=== PATIENT | female | born 1945 | race African-American/Black ===

== ENCOUNTER 2016-07-28 19:39 | Emergency (ER) | payer MEDICARE, OTHER ==
[~2016-07-28] VITALS: Ht 170.2 cm; Wt 135.0 kg
[~2016-07-28 19:39] MED LIST: ALBU0.086 NEB; B12-1CHW CHEW; CLON.1 PO; DILT180C PO; FAMO1TAB36 PO; FISHCAP PO; FURO1TAB93 PO; HYDR-3535 PO; IRON18TA2 PO; MAGN30TA2; MULTCAP PO; PRED20 PO; RIVA20 PO; SUCR1S PO
[2016-07-28 19:42] VITALS: BP 185/84; PULSE 84; RESP 24; TEMP 98; O2SAT 98
--- NOTE | 2016-07-28 20:08 | PD ---
HPI Chief Complaint: Respiratory Symptoms Time Seen by Provider: 20:00 Travel History International Travel<30 days: No Contact w/Intl Traveler<30days: No Traveled to known affect area: No History of Present Illness HPI 70-year-old female who reports a history of CHF, atrial fibrillation, on xarelto. She presents for evaluation of dyspnea, cough. Symptom onset 5 days ago. The cough is productive with clear and yellow tinged sputum. The dyspnea is worse when she is lying down. She reports that she never lies down flat and sleeps reclined secondary to dyspnea. She takes 40 mg of Lasix on a daily basis , did not take it today because she was coming here. She denies any chest pain , nausea, vomiting, fevers, chills, new onset Swelling or pain, abdominal pain. She has been using albuterol nebulizers at home and this seems to help. She has no other complaints at this time. PFSH Past Medical History Hx Anticoagulant Therapy: Yes Arthritis: Yes Asthma: No Atrial Fibrillation: Yes Autoimmune Disease: No Blood Disorders: No Anxiety: Yes Depression: Yes Heart Rhythm Problems: Yes Cancer: No Cardiovascular Problems: Yes (CHF) High Cholesterol: Yes Chemotherapy: No Chest Pain: No Congestive Heart Failure: Yes COPD: No Cerebrovascular Accident: No Diabetes: No Diminished Hearing: No Endocrine: No Gastrointestinal Disorders: Yes GERD: Yes Glaucoma: No Genitourinary: No Headaches: No Hepatitis: No Hiatal Hernia: Yes Hypertension: Yes Immune Disorder: No Implanted Vascular Access Dvce: Yes Kidney Stones: No Musculoskeletal: Yes Neurologic: No Psychiatric: Yes Reproductive: No Respiratory: Yes (COPD) Myocardial Infarction: No Radiation Therapy: No Renal Failure: No Seizures: No Sickle Cell Disease: No Sleep Apnea: Yes Thyroid Disease: No Ulcer: No Past Surgical History Abdominal Surgery: Yes (appendectomy) AICD: No Appendectomy: Yes Arteriovenous Shunt: No Body Medical Devices: PIERCED EARS Cardiac Surgery: No Cholecystectomy: No Ear Surgery: No Endocrine Surgery: No Eye Surgery: Yes (PARITAL FACE LIFT) Genitourinary Surgery: No Gynecologic Surgery: Yes (breast reduction) Insulin Pump: No Joint Replacement: Yes (left knee replaced) Oral Surgery: No Pacemaker: No Thoracic Surgery: Yes (BREAST REDUCTION) Other Surgery: Yes (BREAST REDUCTION AND FACE LIFT) Social History Alcohol Use: No Tobacco Use: No Substance Use: No Allergies-Medications (Allergen,Severity, Reaction): Coded Allergies: Sulfa (Verified Allergy, Mild, skin peels, 07/28/16) Reported Meds & Prescriptions Reported Meds & Active Scripts Active Prednisone 20 Mg Tab 20 Mg PO BID 5 Days Azithromycin 250 Mg Tab 250 Mg PO DAILY Reported Furosemide 40 Mg Tab 40 Mg PO DAILY Furosemide 40 Mg Tab 40 Mg PO BID Cardizem (Diltiazem HCl) 120 Mg Tab 180 Mg PO DAILY Clonidine (Clonidine HCl) 0.1 Mg Tab 0.1 Mg PO BID Albuterol Neb (Albuterol Sulfate) 2.5 Mg/3 Ml Neb 2.5 Mg NEB Q4HR NEB PRN Xarelto (Rivaroxaban) 20 Mg Tab 20 Mg PO DAILY Review of Systems Except as stated in HPI: all other systems reviewed are Neg Physical Exam Narrative GENERAL: Well-developed well-nourished female in no acute distress SKIN: Warm and dry. HEAD: Atraumatic. Normocephalic. EYES: Pupils equal and round. No scleral icterus. No injection or drainage. ENT: No nasal bleeding or discharge. Mucous membranes pink and moist. NECK: Trachea midline. No JVD. No lymphadenopathy. CARDIOVASCULAR: Irregular rate and rhythm. No murmur appreciated. RESPIRATORY: No accessory muscle use. Auditory wheezing bilaterally. GASTROINTESTINAL: Abdomen soft, non-tender, nondistended. Hepatic and splenic margins not palpable. MUSCULOSKELETAL: No obvious deformities. 1+ tibial pitting edema bilaterally. NEUROLOGICAL: Awake and alert. No obvious cranial nerve deficits. Motor grossly within normal limits. Normal speech. Data Data Last Documented VS Vital Signs Date Time Temp Pulse Resp B/P Pulse Ox O2 Delivery O2 Flow Rate FiO2 07/28/16 20:24 80 22 150/70 98 Aerosol Mask 07/28/16 19:42 98.0 Orders Complete Blood Count With Diff (07/28/16 20:05) Basic Metabolic Panel (Bmp) (07/28/16 20:05) B-Type Natriuretic Peptide (07/28/16 20:05) Magnesium (Mg) (07/28/16 20:05) Ckmb (Isoenzyme) Profile (07/28/16 20:05) Troponin I (07/28/16 20:05) Iv Access Insert/Monitor (07/28/16 20:05) Electrocardiogram (07/28/16 20:05) Ecg Monitoring (07/28/16 20:05) Oximetry (07/28/16 20:05) Oxygen Administration (07/28/16 20:05) Chest, Single Ap (07/28/16 20:05) Sodium Chloride 0.9% Flush (Ns Flush) (07/28/16 20:15) Furosemide Inj (Lasix Inj) (07/28/16 20:15) Methylprednisolone So Succ Inj (Solumedr (07/28/16 20:15) Albuterol-Ipratropium Neb (Duoneb Neb) (07/28/16 20:15) CKMB (07/28/16 21:13) CKMB% (07/28/16 21:13) Labs Laboratory Tests Test 07/28/16 07/28/16 20:25 21:13 White Blood Count 7.5 TH/MM3 Red Blood Count 4.65 MIL/MM3 Hemoglobin 13.8 GM/DL Hematocrit 40.2 % Mean Corpuscular Volume 86.4 FL Mean Corpuscular Hemoglobin 29.6 PG Mean Corpuscular Hemoglobin 34.3 % Concent Red Cell Distribution Width 15.9 % Platelet Count 159 TH/MM3 Mean Platelet Volume 9.2 FL Neutrophils (%) (Auto) 51.8 % Lymphocytes (%) (Auto) 31.0 % Monocytes (%) (Auto) 7.3 % Eosinophils (%) (Auto) 9.4 % Basophils (%) (Auto) 0.5 % Neutrophils # (Auto) 3.9 TH/MM3 Lymphocytes # (Auto) 2.3 TH/MM3 Monocytes # (Auto) 0.5 TH/MM3 Eosinophils # (Auto) 0.7 TH/MM3 Basophils # (Auto) 0.0 TH/MM3 CBC Comment DIFF FINAL Differential Comment B-Type Natriuretic Peptide 76 PG/ML Sodium Level 143 MEQ/L Potassium Level 4.2 MEQ/L Chloride Level 108 MEQ/L Carbon Dioxide Level 26.9 MEQ/L Anion Gap 8 MEQ/L Blood Urea Nitrogen 15 MG/DL Creatinine 0.89 MG/DL Estimat Glomerular Filtration 76 ML/MIN Rate Random Glucose 89 MG/DL Calcium Level 9.4 MG/DL Magnesium Level 2.2 MG/DL Total Creatine Kinase 111 U/L Troponin I LESS THAN 0.02 NG/ML MDM Medical Decision Making Medical Screen Exam Complete: Yes Emergency Medical Condition: Yes Medical Record Reviewed: Yes Interpretation(s) EKG atrial fibrillation cxray FINDINGS: Trace edema seen at the bases. No large infiltrates seen. No large effusion. No pneumothorax. Mild cardiomegaly is stable. CBC unremarkable Differential Diagnosis CHF exacerbation, pneumonia, bronchitis, COPD, bronchiolitis, pleural effusion, acute coronary syndrome Narrative Course 70-year-old female with history of atrial fibrillation, on anticoagulation, CHF , presents with cough and dyspnea for 5 days. On initial examination she has wheezing bilaterally. She has trace lower extremity edema bilaterally which is chronic and not new according to the patient. She takes Lasix on a daily basis but did not take her dose today. IV Lasix ordered however the patient declined them. The patient will be given DuoNeb therapy, Solu-Medrol. Basic lab work, EKG, chest x-ray and ordered. The patient's lab work and imaging studies have been reviewed. The patient was reexamined after administration of DuoNeb therapy and she feels significant improved. The patient's symptoms appear primarily pulmonary, likely bronchitis versus COPD. Plan is to treat the patient with azithromycin, prednisone. She is stable for discharge. Procedures EKG Prior to Arrival: Yes Diagnosis Primary Impression: Bronchitis Additional Instructions: Medication as prescribed. Use at-home albuterol as needed. Follow-up with primary care physician. Return for new or worsening symptoms. Med/Other Pt SpecificInfo: Prescription(s) given Scripts Prednisone 20 Mg Tab20 Mg PO BID 5 Days Ref 0 Prov:Christy Dailey MD 07/28/16 Azithromycin 250 Mg [id number] Mg PO DAILY #4 TAB Ref 0 Prov:Christy Dailey MD 07/28/16 Disposition: 01 DISCHARGE HOME Condition: Stable Cristino Foss Jul 28, 2016 20:08
[2016-07-28] MEDS: RESP: ALBUTEROL 2.5 MG/IPRATROPIUM 0.5 MG NEB (SCH) INH (20:12)
[2016-07-28] MEDS ORDERED: SODIUM CHLORIDE 0.9% FLUSH 5 ML FLUSH IVF PRN (20:15)
[2016-07-28] MEDS ORDERED: FUROSEMIDE 40 MG/4 ML VIAL IVP ONE (20:15)
[2016-07-28] MEDS ORDERED: methylPREDNISolone SOD SUCC 125 MG/2 ML VIAL IVP ONE (20:15)
[2016-07-28 20:24] VITALS: BP 150/70; PULSE 80; RESP 22; O2SAT 98
[2016-07-28] MEDS ORDERED: ALBU0.08 NEB (20:42)
[2016-07-28] MEDS ORDERED: FURO40TA PO ×2 (20:42)
[2016-07-28] MEDS ORDERED: CLON0.1T PO (20:42)
[2016-07-28] MEDS ORDERED: CARD120T4 PO (20:42)
[2016-07-28] MEDS ORDERED: XARE20TA PO (20:42)
--- NOTE | 2016-07-28 20:42 | PD ---
Physical Exam Narrative General: The patient is a well-developed well-nourished female, slightly short of breath on my arrival to the room, however she reports that she feels improved after nebulizer treatments were started prior to my arrival. Head and Neck exam: Head is normocephalic atraumatic. Eyes: EOMI, pupils are equal round and reactive to light. Nose: Midline septum with pink mucous membranes Mouth: Dentition unremarkable. Moist mucus membranes. Posterior oropharynx is not erythematous. No tonsillar hypertrophy. Uvula midline. Airway patent. Neck: No palpable lymphadenopathy. No nuchal rigidity. No thyromegaly. Cardiovascular: Irregularly irregular with a rate in the 80s to 90s without murmurs, gallops, or rubs. Lungs: Expiratory wheezes are audible throughout bilateral lung kumar. No accessory muscle use currently. No tripoding. No conversational dyspnea. The patient is currently in the process of receiving a nebulizer treatment. Abdomen: Soft, without tenderness to palpation in all 4 quadrants of the abdomen. No guarding, rebound, or rigidity. Normal bowel sounds are audible. Extremities: No clubbing or cyanosis. The patient has 1+ pitting edema bilateral lower extremities which she reports is chronic and stable. No calf tenderness on palpation. Neurologic Exam: Grossly nonfocal. Skin Exam: No rash noted. Intact skin that is warm and dry. Data Data Last Documented VS Vital Signs Date Time Temp Pulse Resp B/P Pulse Ox O2 Delivery O2 Flow Rate FiO2 07/28/16 20:24 80 22 150/70 98 Aerosol Mask 07/28/16 19:42 98.0 Orders Complete Blood Count With Diff (07/28/16 20:05) Basic Metabolic Panel (Bmp) (07/28/16 20:05) B-Type Natriuretic Peptide (07/28/16 20:05) Magnesium (Mg) (07/28/16 20:05) Ckmb (Isoenzyme) Profile (07/28/16 20:05) Troponin I (07/28/16 20:05) Iv Access Insert/Monitor (07/28/16 20:05) Electrocardiogram (07/28/16 20:05) Ecg Monitoring (07/28/16 20:05) Oximetry (07/28/16 20:05) Oxygen Administration (07/28/16 20:05) Chest, Single Ap (07/28/16 20:05) Sodium Chloride 0.9% Flush (Ns Flush) (07/28/16 20:15) Furosemide Inj (Lasix Inj) (07/28/16 20:15) Methylprednisolone So Succ Inj (Solumedr (07/28/16 20:15) Albuterol-Ipratropium Neb (Duoneb Neb) (07/28/16 20:15) CKMB (07/28/16 21:13) CKMB% (07/28/16 21:13) Azithromycin (Zithromax) (07/28/16 22:30) Labs Laboratory Tests Test 07/28/16 07/28/16 20:25 21:13 White Blood Count 7.5 TH/MM3 Red Blood Count 4.65 MIL/MM3 Hemoglobin 13.8 GM/DL Hematocrit 40.2 % Mean Corpuscular Volume 86.4 FL Mean Corpuscular Hemoglobin 29.6 PG Mean Corpuscular Hemoglobin 34.3 % Concent Red Cell Distribution Width 15.9 % Platelet Count 159 TH/MM3 Mean Platelet Volume 9.2 FL Neutrophils (%) (Auto) 51.8 % Lymphocytes (%) (Auto) 31.0 % Monocytes (%) (Auto) 7.3 % Eosinophils (%) (Auto) 9.4 % Basophils (%) (Auto) 0.5 % Neutrophils # (Auto) 3.9 TH/MM3 Lymphocytes # (Auto) 2.3 TH/MM3 Monocytes # (Auto) 0.5 TH/MM3 Eosinophils # (Auto) 0.7 TH/MM3 Basophils # (Auto) 0.0 TH/MM3 CBC Comment DIFF FINAL Differential Comment B-Type Natriuretic Peptide 76 PG/ML Sodium Level 143 MEQ/L Potassium Level 4.2 MEQ/L Chloride Level 108 MEQ/L Carbon Dioxide Level 26.9 MEQ/L Anion Gap 8 MEQ/L Blood Urea Nitrogen 15 MG/DL Creatinine 0.89 MG/DL Estimat Glomerular Filtration 76 ML/MIN Rate Random Glucose 89 MG/DL Calcium Level 9.4 MG/DL Magnesium Level 2.2 MG/DL Total Creatine Kinase 111 U/L Creatine Kinase MB 0.7 NG/ML Troponin I LESS THAN 0.02 NG/ML [facility] Medical Record Reviewed: Yes Supervised Visit with KASSANDRA: Yes Interpretation(s) Last Impressions Chest X-Ray 07/28/162004 Signed Impressions: Service Date/Time: Thursday, July 28, 2016 20:34 - CONCLUSION: Trace failure. Rodney eHndrickson MD Narrative Course I, Dr. Dailey, have reviewed the advance practice practitioner's documentation and am in agreement, met with the patient face to face, made the diagnosis, and the medical decision making was done by me. The patient was initially evaluated by Cristino, please see his complete history and physical. *My assessment and Findings: The patient is a 70-year-old female who presents to [facility] emergency Department with a history of congestion, cough productive of yellow sputum and shortness of breath with wheezing that began a few days ago. The patient reports that she has been using an albuterol nebulizer treatment at home with minimal relief. The patient reports that she has a history of smoking, however she quit smoking 25 years ago. The patient reports that she has a history of congestive heart failure, however she denies any worsening lower extremity edema. She has been taking her Lasix on a daily basis. The patient's examination is remarkable for an irregularly irregular rhythm, however the patient does have a history of atrial fibrillation and her rate is controlled. She is on anticoagulation. The patient also on examination has expiratory wheezes throughout bilateral lung kumar. Laboratory studies and chest x-ray have been ordered. Her EKG reveals atrial fibrillation heart rate of 80, nonspecific T-wave abnormalities, no acute ST segment elevation. Laboratory studies revealed a CBC within normal limits, basic metabolic profile unremarkable, cardiac enzymes are negative, BNP is 76, chest x-ray shows trace failure, however this is unlikely given the patient's normal BNP. The patient will be discharged home with a prescription for antibiotic and prednisone for a suspected COPD exacerbation. The patient is resting comfortably and feels better, is alert and in no distress. The patients results and examination findings were discussed with the patient The repeat examination is unremarkable and benign. The history, exam , diagnostic testing, and current condition do not suggest any significant pathology to warrant further testing, continued ED treatment, admission, or surgical evaluation at this point. The vital signs have been stable. The patient does not have uncontrollable pain, intractable vomiting, or other significant symptoms. The patient's condition is stable and appropriate for discharge. The patient will pursue further outpatient evaluation with a primary care physician or other designated or consulting physician as indicated in the discharge instructions. The patient expressed understanding and was agreeable with this plan. Scripts Prednisone 20 Mg Tab20 Mg PO BID 5 Days Ref 0 Prov:Christy Dailey MD 07/28/16 Azithromycin 250 Mg [id number] Mg PO DAILY #4 TAB Ref 0 Prov:Christy Dailey MD 07/28/16 Christy Dailey MD Jul 28, 2016 20:42
[2016-07-28 20:49] LABS: AUTOMATED NEUTROPHIL # 3.9 TH/MM3 (1.8-7.7); BASOPHIL % 0.5 % (0.0-2.0); EOSINOPHIL # 0.7 TH/MM3 (0-0.4); EOSINOPHIL % 9.4 % (0.0-4.0); HEMATOCRIT 40.2 % (35.0-46.0); HEMO FLAGS DIFF FINAL; LYMPHOCYTE # 2.3 TH/MM3 (1.0-4.8); MEAN CELL VOLUME 86.4 FL (80.0-100.0); MEAN CORPUSCULAR HEMOGLOBIN 29.6 PG (27.0-34.0); MEAN CORPUSCULAR HGB CONC 34.3 % (32.0-36.0); MONO % 7.3 % (0.0-8.0); NEUT % 51.8 % (16.0-70.0); PLATELET COUNT 159 TH/MM3 (150-450); RED BLOOD COUNT 4.65 MIL/MM3 (4.00-5.30); RED CELL DISTRIBUTION WIDTH 15.9 % (11.6-17.2); WHITE BLOOD COUNT 7.5 TH/MM3 (4.0-11.0)
--- NOTE | 2016-07-28 21:01 | RADRPT ---
EXAM DATE/TIME: 07/28/2016 20:34 [facility] COMPARISON: CHEST SINGLE AP, May 21, 2016, 18:54. INDICATIONS : Shortness of breath MEDICAL HISTORY : Congestive heart failure. SURGICAL HISTORY : Appendectomy. R Rotator Cuff, Breat Augmentation, Bilat Knees ENCOUNTER: Initial ACUITY: 1 day PAIN SCORE: 4/10 LOCATION: Bilateral chest FINDINGS: Trace edema seen at the bases. No large infiltrates seen. No large effusion. No pneumothorax. Mild ca rdiomegaly is stable. CONCLUSION: Trace failure. Rodney Hendrickson MD on July 28, 2016 at 20:59 Board Certified Radiologist. This report was verified electronically.
[2016-07-28 22:23] LABS: ANION GAP 8 MEQ/L (5-15); BICARBONATE 26.9 MEQ/L (21.0-32.0); BLOOD UREA NITROGEN 15 MG/DL (7-18); CHLORIDE 108 MEQ/L (98-107); GLOMERULAR FILTRATION RATE 76 ML/MIN (>89); MAGNESIUM 2.2 MG/DL (1.5-2.5); POTASSIUM 4.2 MEQ/L (3.5-5.1); SODIUM (NA) 143 MEQ/L (136-145)
[2016-07-28 22:26] LABS: CREATINE KINASE 111 U/L (26-192)
[2016-07-28] MEDS ORDERED: PRED20 PO (22:30)
[2016-07-28] MEDS ORDERED: AZITHROMYCIN 250 MG TAB PO ONE (22:30)
[2016-07-28] MEDS ORDERED: AZIT250T3 PO (22:30)
[2016-07-28 22:38] LABS: CKMB 0.7 NG/ML (0.5-3.6)
--- NOTE | 2016-07-29 17:53 | EKG ---
Date Performed: 07/28/2016 Time Performed: 20:35:25 PTAGE: 70 years EKG: ATRIAL FIBRILLATION NONSPECIFIC T-WAVE ABNORMALITY Since previous tracing, no significant c hange noted ABNORMAL RHYTHM ECG PREVIOUS TRACING : 05/21/2016 18.48 DOCTOR: Cindi Carter Interpretating Date/Time 07/29/2016 17:51:16
== END 2016-07-28 22:49 | disposition home or self-care (01) ==
LOC: NEPE 19:39
DX: J44.1 Chronic obstructive pulmonary disease with (acute) exacerbation (principal); I50.9 Heart failure, unspecified; I48.91 Unspecified atrial fibrillation; Z79.01 Long term (current) use of anticoagulants
CPT/HCPCS: 71010; 80048; 82550; 82552; 83735; 83880; 84484; 85025; 93005; 94640; 94664; 96374; 99285; J2930

== ENCOUNTER 2016-08-28 18:59 | Inpatient (IN) | payer MEDICARE, OTHER ==
[~2016-08-28] VITALS: Ht 170.2 cm; Wt 92.3 kg
[~2016-08-28 18:59] MED LIST changes: +ALBU0.08 NEB; -ALBU0.086 NEB; +AZIT250T3 PO; -B12-1CHW CHEW; +CARD120T4 PO; -CLON.1 PO; +CLON0.1T PO; -DILT180C PO; -FAMO1TAB36 PO; -FISHCAP PO; -FURO1TAB93 PO; +FURO40TA PO; -HYDR-3535 PO; -IRON18TA2 PO; -MAGN30TA2; -MULTCAP PO; -RIVA20 PO; -SUCR1S PO; +XARE20TA PO
[2016-08-28 19:02] VITALS: BP 145/75; PULSE 83; RESP 18; TEMP 98.2; O2SAT 97
--- NOTE | 2016-08-28 19:39 | PD ---
HPI Chief Complaint: Respiratory Symptoms Time Seen by Provider: 19:33 Travel History International Travel<30 days: No Contact w/Intl Traveler<30days: No Traveled to known affect area: No History of Present Illness HPI 70-year-old female came to the emergency room with history of shortness of breath upon exertion, cough with yellowish colored phlegm that has been going on for almost 6 weeks now. Patient says that she has had 3 courses of antibiotics mostly Z-Arsenio with not much effect. Patient says that she has been in this emergency room twice in these 6 weeks but her symptoms continue. No history of chest pain. Lately patient has been short of breath even getting in and out of her wheelchair. Patient has history of congestive heart failure and takes 40 mg of Lasix daily without stopping any dose. She has noticed that her legs bilaterally are swollen. Patient is morbidly obese and normally uses a wheelchair for ambulation. However, getting in and out of the wheelchair makes her extremely short of breath lately. She was brought in by her family today. Her vital signs in the triage were stable. However when I asked her to lay down in the stretcher she got extremely short of breath chest on doing that minimal task. Her heart rate went up to 110. She was unable to finish a sentence within of breath. Patient says she was diagnosed with asthma many years ago and had it for 3 years only. She has not had issues regarding asthma since then. [facility] Past Medical History Narrative Medical List of her past medical history as reviewed from the nursing note. Hx Anticoagulant Therapy: Yes Arthritis: Yes Asthma: No Atrial Fibrillation: Yes Autoimmune Disease: No Blood Disorders: No Anxiety: Yes Depression: Yes Heart Rhythm Problems: Yes Cancer: No Cardiovascular Problems: Yes High Cholesterol: Yes Chemotherapy: No Chest Pain: No Congestive Heart Failure: Yes COPD: No Cerebrovascular Accident: No Diabetes: No Diminished Hearing: No Endocrine: No Gastrointestinal Disorders: Yes GERD: Yes Glaucoma: No Genitourinary: No Headaches: No Hepatitis: No Hiatal Hernia: Yes Hypertension: Yes Immune Disorder: No Implanted Vascular Access Dvce: Yes Kidney Stones: No Musculoskeletal: Yes Neurologic: No Psychiatric: Yes Reproductive: No Respiratory: Yes (COPD) Immunizations Current: Yes Myocardial Infarction: No Radiation Therapy: No Renal Failure: No Seizures: No Sickle Cell Disease: No Sleep Apnea: Yes Thyroid Disease: No Ulcer: No Past Surgical History Abdominal Surgery: Yes (appendectomy) AICD: No Appendectomy: Yes Arteriovenous Shunt: No Body Medical Devices: PIERCED EARS Cardiac Surgery: No Cholecystectomy: No Ear Surgery: No Endocrine Surgery: No Eye Surgery: Yes (PARITAL FACE LIFT) Genitourinary Surgery: No Gynecologic Surgery: Yes (breast reduction) Insulin Pump: No Joint Replacement: Yes (left knee replaced) Oral Surgery: No Pacemaker: No Thoracic Surgery: Yes (BREAST REDUCTION) Other Surgery: Yes (BREAST REDUCTION AND FACE LIFT) Social History Alcohol Use: No Tobacco Use: No Substance Use: No Allergies-Medications (Allergen,Severity, Reaction): Coded Allergies: Sulfa (Verified Allergy, Mild, skin peels, 08/28/16) Comments List of her allergies reviewed from the nursing note. Reported Meds & Prescriptions Reported Meds & Active Scripts Active Reported Furosemide 40 Mg Tab 40 Mg PO BID Cardizem (Diltiazem HCl) 120 Mg Tab 180 Mg PO DAILY Clonidine (Clonidine HCl) 0.1 Mg Tab 0.1 Mg PO BID Albuterol Neb (Albuterol Sulfate) 2.5 Mg/3 Ml Neb 2.5 Mg NEB Q4HR NEB PRN Xarelto (Rivaroxaban) 20 Mg Tab 20 Mg PO DAILY Narrative Medication List of her home medications reviewed from the nursing note. Review of Systems Except as stated in HPI: all other systems reviewed are Neg Physical Exam Narrative GENERAL: Awake, alert, morbidly obese, moderate respiratory distress SKIN: Warm and dry. HEAD: Atraumatic. Normocephalic. EYES: Pupils equal and round. No scleral icterus. No injection or drainage. ENT: No nasal bleeding or discharge. Mucous membranes pink and moist. NECK: Trachea midline. No JVD. CARDIOVASCULAR: Regular rate and rhythm. No murmur appreciated. RESPIRATORY: Decreased air entry bilaterally with end expiratory wheeze GASTROINTESTINAL: Abdomen soft, non-tender, nondistended. Hepatic and splenic margins not palpable. MUSCULOSKELETAL: No obvious deformities. No clubbing. No cyanosis. No edema. NEUROLOGICAL: Awake and alert. No obvious cranial nerve deficits. Motor grossly within normal limits. Normal speech. PSYCHIATRIC: Appropriate mood and affect; insight and judgment normal. Data Data Last Documented VS Vital Signs Date Time Temp Pulse Resp B/P Pulse Ox O2 Delivery O2 Flow Rate FiO2 08/28/16 20:56 85 18 148/75 96 Room Air 08/28/16 19:02 98.2 Orders Complete Blood Count With Diff (08/28/16 19:44) Basic Metabolic Panel (Bmp) (08/28/16 19:44) B-Type Natriuretic Peptide (08/28/16 19:44) Prothrombin Time / Inr (Pt) (08/28/16 19:44) Magnesium (Mg) (08/28/16 19:44) Ckmb (Isoenzyme) Profile (08/28/16 19:44) Troponin I (08/28/16 19:44) Urinalysis - C+S If Indicated (08/28/16 19:44) Iv Access Insert/Monitor (08/28/16 19:44) Electrocardiogram (08/28/16 19:44) Ecg Monitoring (08/28/16 19:44) Oximetry (08/28/16 19:44) Oxygen Administration (08/28/16 19:44) Chest, Single Ap (08/28/16 19:44) Sodium Chloride 0.9% Flush (Ns Flush) (08/28/16 19:45) Albuterol-Ipratropium Neb (Duoneb Neb) (08/28/16 19:45) Furosemide Inj (Lasix Inj) (08/28/16 19:45) Diltiazem Inj (Cardizem Inj) (08/28/16 20:45) Urinary Catheter Insert/Apply (08/28/16 20:37) Diltiazem (Cardizem) (08/28/16 20:45) Clonidine (Catapres) (08/28/16 20:45) CKMB (08/28/16 20:08) CKMB% (08/28/16 20:08) Methylprednisolone So Succ Inj (Solumedr (08/28/16 22:00) Place In Observation (08/28/16 ) Vital Signs (Adult) Q4H (08/28/16 21:57) Activity Oob With Assistance (08/28/16 21:57) Seed Collector / Telemetry .CONTINUOUS (08/28/16 21:57) Intake + Output MASOOD.QSHIFT (08/28/16 21:57) Diet Heart Healthy (08/29/16 Breakfast) Sodium Chloride 0.9% Flush (Ns Flush) (08/28/16 22:00) Sodium Chloride 0.9% Flush (Ns Flush) (08/29/16 09:00) Basic Metabolic Panel (Bmp) (08/29/16 06:00) Complete Blood Count With Diff (08/29/16 06:00) Creatine Kinase (Cpk) (08/29/16 02:00) Creatine Kinase (Cpk) (08/29/16 08:00) Troponin I (08/29/16 02:00) Troponin I (08/29/16 08:00) Electrocardiogram (08/29/16 02:00) Electrocardiogram (08/29/16 08:00) Pt Request For Service (08/28/16 21:57) Case Management Consult (08/28/16 21:57) Enoxaparin Inj (Lovenox Inj) (08/29/16 09:00) Naloxone Inj (Narcan Inj) (08/28/16 22:00) Admit Order (Ed Use Only) (08/28/16 21:57) Clonidine (Catapres) (08/29/16 09:00) Rivaroxaban (Xarelto) (08/29/16 09:00) Diltiazem Cd (Cardizem Cd) (08/29/16 09:00) Furosemide Inj (Lasix Inj) (08/29/16 09:00) Albuterol-Ipratropium Neb (Duoneb Neb) (08/29/16 08:00) Albuterol-Ipratropium Neb (Duoneb Neb) (08/28/16 22:00) Thyroid Stimulating Hormone (08/29/16 03:56) Labs Laboratory Tests Test 08/28/16 08/28/16 20:08 20:45 White Blood Count 6.8 TH/MM3 Red Blood Count 4.69 MIL/MM3 Hemoglobin 13.5 GM/DL Hematocrit 41.0 % Mean Corpuscular Volume 87.3 FL Mean Corpuscular Hemoglobin 28.8 PG Mean Corpuscular Hemoglobin 33.0 % Concent Red Cell Distribution Width 15.3 % Platelet Count 176 TH/MM3 Mean Platelet Volume 9.0 FL Neutrophils (%) (Auto) 55.6 % Lymphocytes (%) (Auto) 29.8 % Monocytes (%) (Auto) 8.0 % Eosinophils (%) (Auto) 5.8 % Basophils (%) (Auto) 0.8 % Neutrophils # (Auto) 3.8 TH/MM3 Lymphocytes # (Auto) 2.0 TH/MM3 Monocytes # (Auto) 0.5 TH/MM3 Eosinophils # (Auto) 0.4 TH/MM3 Basophils # (Auto) 0.1 TH/MM3 CBC Comment DIFF FINAL Differential Comment Prothrombin Time 14.0 SEC Prothromb Time International 1.3 RATIO Ratio Sodium Level 138 MEQ/L Potassium Level 4.5 MEQ/L Chloride Level 105 MEQ/L Carbon Dioxide Level 24.4 MEQ/L Anion Gap 9 MEQ/L Blood Urea Nitrogen 8 MG/DL Creatinine 0.97 MG/DL Estimat Glomerular Filtration 68 ML/MIN Rate Random Glucose 94 MG/DL Calcium Level 9.6 MG/DL Magnesium Level 2.0 MG/DL Total Creatine Kinase 137 U/L Creatine Kinase MB LESS THAN 0.5 NG/ML Troponin I LESS THAN 0.02 NG/ML B-Type Natriuretic Peptide 99 PG/ML Urine Color LIGHT-YELLOW Urine Turbidity CLEAR Urine pH 7.0 Urine Specific [place] 1.006 Urine Protein NEG mg/dL Urine Glucose (UA) NEG mg/dL Urine Ketones NEG mg/dL Urine Occult Blood NEG Urine Nitrite NEG Urine Bilirubin NEG Urine Urobilinogen LESS THAN 2.0 MG/DL Urine Leukocyte Esterase NEG Urine RBC 1 /hpf Urine WBC LESS THAN 1 /hpf Urine Squamous Epithelial <1 /hpf Cells Microscopic Urinalysis Comment CULT NOT INDICATED MDM Medical Decision Making Medical Screen Exam Complete: Yes Emergency Medical Condition: Yes Medical Record Reviewed: Yes Interpretation(s) Twelve-lead EKG was reviewed by me. Atrial fibrillation, normal axis, RVR. Heart rate of 108 bpm. Differential Diagnosis Congestive heart failure, COPD exacerbation, pneumonia Narrative Course 8:32 PM there is a significant chance that patient is in congestive heart failure. I gave her 60 mg of IV Lasix. She also received 2 DuoNeb. Awaiting for the blood test results to come back. I would like to admit her given the fact that she is failing outpatient treatment at this point. 9:43 PM blood test results of back. I asked patient regarding her atrial fibrillation and she said that she has history of it and was going to get an ablation but then it got better. She is on Xarelto. I would admit her for exertional dyspnea, wheezing, outpatient treatment failure. I will give her dose of IV Solu-Medrol bolus. I reassessed her and her breathing sounds much better. Patient has made 1600 ML of urine in the bag. Awaiting for the hospitalist to call back. Procedures EKG Prior to Arrival: No Diagnosis Primary Impression: Exertional dyspnea Additional Impressions: Shortness of breath Atrial fibrillation with RVR Congestive heart failure Qualified Code: I50.9 - Acute on chronic congestive heart failure, unspecified congestive heart failure type Failure of outpatient treatment Wheezing Admitting Information Admitting Physician Requests: Juan Todd MD Aug 28, 2016 19:39
[2016-08-28] MEDS ORDERED: SODIUM CHLORIDE 0.9% FLUSH 5 ML FLUSH IVF PRN (19:45)
[2016-08-28] MEDS ORDERED: FUROSEMIDE 100 MG/10 ML VIAL IVP ONE (19:45)
[2016-08-28] MEDS: RESP: ALBUTEROL 2.5 MG/IPRATROPIUM 0.5 MG NEB (SCH) INH ×2 (20:07→20:08)
--- NOTE | 2016-08-28 20:17 | RADRPT ---
EXAM DATE/TIME: 08/28/2016 19:44 [place] COMPARISON: CHEST SINGLE AP, July 28, 2016, 20:34. INDICATIONS : Short of breath. MEDICAL HISTORY : None. SURGICAL HISTORY : None. ENCOUNTER: Initial ACUITY: 1 day PAIN SCORE: 0/10 LOCATION: Bilateral chest FINDINGS: A single view of the chest demonstrates the lungs to be symmetrically aerated without evidence of mas s, infiltrate or effusion. Moderate enlargement cardiac silhouette. Pulmonary vascularity is normal. The cardiomediastinal contours are unremarkable. Osseous structures are intact. CONCLUSION: Moderate enlargement cardiac silhouette. No change.. Gibson Lofton MD on August 28, 2016 at 20:15 Board Certified Radiologist. This report was verified electronically.
[2016-08-28 20:18] VITALS: RESP 24; O2SAT 97
[2016-08-28 20:37] LABS: AUTOMATED NEUTROPHIL # 3.8 TH/MM3 (1.8-7.7); BASOPHIL # 0.1 TH/MM3 (0-0.2); BASOPHIL % 0.8 % (0.0-2.0); EOSINOPHIL # 0.4 TH/MM3 (0-0.4); EOSINOPHIL % 5.8 % (0.0-4.0); HEMO FLAGS DIFF FINAL; LYMPH % 29.8 % (9.0-44.0); MEAN CELL VOLUME 87.3 FL (80.0-100.0); MEAN CORPUSCULAR HEMOGLOBIN 28.8 PG (27.0-34.0); NEUT % 55.6 % (16.0-70.0); PLATELET COUNT 176 TH/MM3 (150-450); RED BLOOD COUNT 4.69 MIL/MM3 (4.00-5.30); RED CELL DISTRIBUTION WIDTH 15.3 % (11.6-17.2); WHITE BLOOD COUNT 6.8 TH/MM3 (4.0-11.0)
[2016-08-28] MEDS ORDERED: cloNIDine HCL 0.1 MG TAB PO ONE (20:45)
[2016-08-28] MEDS ORDERED: DILTIAZEM HCL 90 MG TAB PO ONE (20:45)
[2016-08-28] MEDS ORDERED: DILTIAZEM HCL 25 MG/5 ML VIAL IV ONE (20:45)
[2016-08-28 20:46] LABS: INTERNATIONAL NORMALIZED RATIO 1.3 RATIO
[2016-08-28 20:56] VITALS: BP 148/75; PULSE 85; RESP 18; O2SAT 96
[2016-08-28 21:05] LABS: ANION GAP 9 MEQ/L (5-15); BICARBONATE 24.4 MEQ/L (21.0-32.0); BLOOD UREA NITROGEN 8 MG/DL (7-18); CHLORIDE 105 MEQ/L (98-107); GLOMERULAR FILTRATION RATE 68 ML/MIN (>89); SODIUM (NA) 138 MEQ/L (136-145)
[2016-08-28 21:08] LABS: POTASSIUM 4.5 MEQ/L (3.5-5.1)
[2016-08-28 21:09] LABS: CREATINE KINASE 137 U/L (26-192)
[2016-08-28 21:21] LABS: CKMB LESS THAN 0.5 NG/ML (0.5-3.6)
[2016-08-28 21:37] LABS: BLOOD, URINE NEG (NEG); COMMENT (UR) CULT NOT INDICATED; CULTURE IF INDICATED CULT NOT INDICATED; GLUCOSE,URINE NEG (NEG); KETONE, URINE NEG (NEG); NITRITE,URINE NEG (NEG); SQUAMOUS EPITHELIAL CELL URINE <1 /hpf (0-5); URINE COLOR LIGHT-YELLOW (YELLW/STRAW)
[2016-08-28] MEDS ORDERED: NALOXONE HCL 0.4 MG/ML AMP IV PRN (22:00)
[2016-08-28] MEDS ORDERED: SODIUM CHLORIDE 0.9% FLUSH 5 ML FLUSH FLUSH PRN (22:00)
[2016-08-28] MEDS ORDERED: methylPREDNISolone SOD SUCC 125 MG/2 ML VIAL IV PUSH ONE (22:00)
[2016-08-29] VITALS (10 sets, daily range): BP systolic 127–155; BP diastolic 59–93; PULSE 71–95; RESP 16–22; TEMP 96.5–98.3; O2SAT 96–100
[2016-08-29] MEDS ORDERED: POTASSIUM CHLORIDE 20 MEQ CONTROLLED RELEASE TAB PO ONE (01:15)
--- NOTE | 2016-08-29 02:16 | HHI.HP ---
[facility] Rodney Tam MD Admission Diagnosis CHF, exertional dyspnea, wheezing Diagnoses: Chief Complaint: Shortness of breath Travel History International Travel<30 Days: No Contact w/Intl Traveler <30 Da: No Traveled to Known Affected Are: No History of Present Illness History from patient, ER physician communication, and review of medical records. Patient reported that she came to the hospital because she has been short of breath. This happens mainly on exertion. He states that this has been going on since . She states that she was initially treated for pneumonitis/bronchitis with antibiotics which includes azithromycin. She reports she actually had 2 rounds of these treatments without much improvement. She denies any nausea/vomiting/diarrhea/urinary burning or pain on urination. Denies any hematemesis/hematochezia/melena/hematuria. Denies fever or cough. She does report however that she felt as though there was blood coming out of her throat because she felt she smelled something. However never actually saw any blood. Patient reports of history of CHF. She states that she did have angiogram a few years ago for this. It was clean coronary arteries. Also reports of history of atrial fibrillation. On anticoagulation. Never had ablation. She sees Dr. Willy MCGRAW In the emergency room, patient was given Lasix 60 mg IV. She had diuresed a total of 3 L after this. Patient also reports that she drinks quite a bit of water. She states that she drinks 10 bottles of water and she shows me a bottle size. This was 500 cc in each bottle. She denies any history of diabetes. Review of Systems Other 12 point review of systems obtained and negative apart from what is mentioned in HPI Past Family Social History Past Medical History Hypertension CHF Atrial fibrillation Chronic anticoagulation Sleep apneaon C Pap at night COPDquit smoking about 5 years ago Reported Medications Patient's medications listed in EMRreviewed Allergies: Coded Allergies: Sulfa (Verified Allergy, Mild, skin peels, 08/28/16) Family History Denies any family history of any medical issues. Social History Is to smoke cigarettes for about 20 years. Quit about 5 years ago. Discharge drink alcohol as well. But quit more than 15 years ago. Denies any drug abuse. Physical Exam Vital Signs Vital Signs Date Time Temp Pulse Resp B/P Pulse Ox O2 Delivery O2 Flow Rate FiO2 08/29/16 01:23 83 16 142/62 97 Nasal Cannula 2 08/28/16 20:56 85 18 148/75 96 Room Air 08/28/16 20:19 16 97 Room Air 08/28/16 20:18 96 Room Air 08/28/16 20:18 24 97 Room Air 08/28/16 19:02 98.2 83 18 145/75 97 Room Air Physical Exam GENERAL: This is a well-nourished, well-developed patient, morbidly obese in no apparent distress. SKIN: No rashes, ecchymoses or lesions. Cool and dry. HEAD: Atraumatic. Normocephalic. No temporal or scalp tenderness. EYES: . No scleral icterus. No injection or drainage. ENT: Nose without bleeding, purulent drainage or septal hematoma. . Airway patent. NECK: Trachea midline. No JVD CARDIOVASCULAR: Regular rate and rhythm without murmurs, gallops, or rubs. RESPIRATORY: Clear to auscultation. Breath sounds equal bilaterally. No wheezes , rales, or rhonchi. GASTROINTESTINAL: Abdomen soft, non-tender, nondistended. No hepato-splenomegaly , or palpable masses. No guarding. MUSCULOSKELETAL: Extremities without clubbing, cyanosis. No calf tenderness. bilateral LE edema NEUROLOGICAL: Awake and alert. Motor and sensory grossly within normal limits. Normal speech. Laboratory Laboratory Tests Test 08/28/16 08/28/16 20:08 20:45 White Blood Count 6.8 Red Blood Count 4.69 Hemoglobin 13.5 Hematocrit 41.0 Mean Corpuscular Volume 87.3 Mean Corpuscular Hemoglobin 28.8 Mean Corpuscular Hemoglobin 33.0 Concent Red Cell Distribution Width 15.3 Platelet Count 176 Mean Platelet Volume 9.0 Neutrophils (%) (Auto) 55.6 Lymphocytes (%) (Auto) 29.8 Monocytes (%) (Auto) 8.0 Eosinophils (%) (Auto) 5.8 Basophils (%) (Auto) 0.8 Neutrophils # (Auto) 3.8 Lymphocytes # (Auto) 2.0 Monocytes # (Auto) 0.5 Eosinophils # (Auto) 0.4 Basophils # (Auto) 0.1 CBC Comment DIFF FINAL Differential Comment Prothrombin Time 14.0 Prothromb Time International 1.3 Ratio Sodium Level 138 Potassium Level 4.5 Chloride Level 105 Carbon Dioxide Level 24.4 Anion Gap 9 Blood Urea Nitrogen 8 Creatinine 0.97 Estimat Glomerular Filtration 68 Rate Random Glucose 94 Calcium Level 9.6 Magnesium Level 2.0 Total Creatine Kinase 137 Creatine Kinase MB LESS THAN 0.5 Troponin I LESS THAN 0.02 B-Type Natriuretic Peptide 99 Urine Color LIGHT-YELLOW Urine Turbidity CLEAR Urine pH 7.0 Urine Specific [place] 1.006 Urine Protein NEG Urine Glucose (UA) NEG Urine Ketones NEG Urine Occult Blood NEG Urine Nitrite NEG Urine Bilirubin NEG Urine Urobilinogen LESS THAN 2.0 Urine Leukocyte Esterase NEG Urine RBC 1 Urine WBC LESS THAN 1 Urine Squamous Epithelial <1 Cells Microscopic Urinalysis Comment CULT NOT INDICATED Result Diagram: 08/28/16200708/28/162007 Imaging Last 48 hours Impressions Chest X-Ray 08/28/161943 Signed Impressions: Service Date/Time: Sunday, August 28, 2016 19:44 - CONCLUSION: Moderate enlargement cardiac silhouette. No change.. Gibson Lofton MD Assessment and Plan Problem List: (1) Congestive heart failure ICD Code: I50.9 Status: Acute (2) Exertional dyspnea ICD Code: R06.09 Status: Acute (3) Atrial fibrillation with RVR ICD Code: I48.91 Status: Acute Assessment and Plan Impression: Dyspnea on exertion/peripheral edema/good response to diureticslikely due to acute exacerbation of CHF. BNP within normal limits though likely nonspecific. Water intake for 5 L a daylikely behavior since she stated that this has been going on for years. However will need to rule out diabetes. Hypertension CHF Atrial fibrillation Chronic anticoagulation Sleep apneaon C Pap at night COPDquit smoking about 5 years ago Plan: Echocardiogram in a.m. Continue Lasix at 40 mg IV every 12 hours. Patient's potassium was 4.5. However given that she diuresed a total of 3 L, and that she is not developing muscle cramps, we would replace potassium 40 M AQ one dose right now. Serial cardiac enzymes and EKGs. Cardiology consult with her marketing segment manager. Obtain CT pulmonary angiogram to rule out PE. Resume nebulizer treatments. DVT prophylaxiswith Lovenox. Discussed Condition With Patient, ER physician, patient's nurse Physician Certification 2 Midnight Certification Type: Admission for Inpatient Services Order for Inpatient Services The services are ordered in accordance with Medicare regulations or non- Medicare payer requirements, as applicable. In the case of services not specified as inpatient-only, they are appropriately provided as inpatient services in accordance with the 2-midnight benchmark. Estimated LOS (days): 2 days is the estimated time the patient will need to remain in the hospital, assuming treatment plan goals are met and no additional complications. Post-Hospital Plan: Home Problem Qualifiers (1) Congestive heart failure: Qualified Code: I50.9 - Acute on chronic congestive heart failure, unspecified congestive heart failure type Antonio Sher MD Aug 29, 2016 02:16 Antonio Sher MD Aug 29, 2016 02:16
[2016-08-29 03:20] LABS: CREATINE KINASE 123 U/L (26-192)
[2016-08-29 04:46] LABS: AUTOMATED NEUTROPHIL # 3.1 TH/MM3 (1.8-7.7); BASOPHIL % 0.7 % (0.0-2.0); EOSINOPHIL # 0.4 TH/MM3 (0-0.4); EOSINOPHIL % 6.3 % (0.0-4.0); HEMATOCRIT 41.1 % (35.0-46.0); HEMO FLAGS DIFF FINAL; LYMPH % 31.4 % (9.0-44.0); LYMPHOCYTE # 1.9 TH/MM3 (1.0-4.8); MEAN CELL VOLUME 87.4 FL (80.0-100.0); MEAN CORPUSCULAR HEMOGLOBIN 29.3 PG (27.0-34.0); MEAN CORPUSCULAR HGB CONC 33.5 % (32.0-36.0); MONO % 9.7 % (0.0-8.0); NEUT % 51.9 % (16.0-70.0); PLATELET COUNT 185 TH/MM3 (150-450); RED BLOOD COUNT 4.71 MIL/MM3 (4.00-5.30); RED CELL DISTRIBUTION WIDTH 15.2 % (11.6-17.2)
[2016-08-29 05:13] LABS: POTASSIUM 4.2 MEQ/L (3.5-5.1)
[2016-08-29] MEDS: RESP: ALBUTEROL 2.5 MG/IPRATROPIUM 0.5 MG NEB (SCH) NEB ×3 (07:26→20:00)
[2016-08-29] MEDS: cloNIDine HCL 0.1 MG TAB PO SCH ×2 (08:53→20:31)
[2016-08-29] MEDS: FUROSEMIDE 40 MG/4 ML VIAL IV PUSH SCH ×2 (09:00→18:00)
[2016-08-29] MEDS ORDERED: ENOXAPARIN SODIUM 40 MG/0.4 ML SYRINGE SQ SCH (09:00)
[2016-08-29 10:00] LABS: CREATINE KINASE 90 U/L (26-192)
--- NOTE | 2016-08-29 10:55 | HHI.PR ---
Subjective Remarks Follow up for dyspnea. The patient reports slight improvement of her breathing overnight. She reports continued productive cough with yellow sputum. No fevers/ chills. She reports just feeling generally weak and tired. She has no new medical complaints at this time. Objective Vitals Vital Signs Date Time Temp Pulse Resp B/P Pulse Ox O2 Delivery O2 Flow Rate FiO2 08/29/16 08:53 95 20 129/62 99 Nasal Cannula 2 08/29/16 07:28 98 Nasal Cannula 2.00 08/29/16 07:18 87 20 130/59 100 Nasal Cannula 2 08/29/16 05:47 84 16 153/77 97 Nasal Cannula 2 08/29/16 01:30 97 Nasal Cannula 2.00 08/29/16 01:23 83 16 142/62 97 Nasal Cannula 2 08/28/16 20:56 85 18 148/75 96 Room Air 08/28/16 20:19 16 97 Room Air 08/28/16 20:18 96 Room Air 08/28/16 20:18 24 97 Room Air 08/28/16 19:02 98.2 83 18 145/75 97 Room Air I/O 08/28/16 08/28/16 08/28/16 08/29/16 08/29/16 08/29/16 06:59 14:59 22:59 06:59 14:59 22:59 Output Total 1500 ml Balance -1500 ml Output Urine Total 1500 ml # Voids 0 Result Diagram: 08/29/16 0356 08/29/16 0356 Imaging Last Impressions Chest X-Ray 08/28/161943 Signed Impressions: Service Date/Time: Sunday, August 28, 2016 19:44 - CONCLUSION: Moderate enlargement cardiac silhouette. No change.. Gibson Lofton MD Objective Remarks GENERAL: Well-nourished, well-developed elderly female patient in [facility]. SKIN: Warm and dry. No rash. HEAD: Normocephalic. Atraumatic. EYES: Pupils equal and round. No scleral icterus. No injection or drainage. ENT: No nasal bleeding or discharge. Mucous membranes pink and moist. NECK: Supple. Trachea midline. CARDIOVASCULAR: Regular rate and rhythm. S1, S2 noted. No murmur appreciated. RESPIRATORY: No accessory muscle use. Mild diffuse expiratory wheezing. Breath sounds equal bilaterally. GASTROINTESTINAL: Abdomen soft, non-tender, nondistended. Normoactive bowel sounds x4. MUSCULOSKELETAL: No obvious deformities. Extremities without clubbing, cyanosis , or edema. NEUROLOGICAL: Awake and alert. No obvious cranial nerve deficits. Motor grossly within normal limits. Normal speech. PSYCHIATRIC: Appropriate mood and affect; insight and judgment normal. Medications and IVs Current Medications Medications (Trade) Dose Ordered Sig/Audrey Route Start Time Stop Time Status Last Admin (NS Flush) 2 ml UNSCH PRN FLUSH 08/28/16 22:00 (NS Flush) 2 ml BID FLUSH 08/29/16 09:00 08/29/16 11:14 (Narcan Inj) 0.4 mg UNSCH PRN IV 08/28/16 22:00 (Catapres) 0.1 mg BID PO 08/29/16 09:00 08/29/16 08:53 (Xarelto) 20 mg DAILY PO 08/29/16 09:00 08/29/16 11:15 (Cardizem Cd) 180 mg DAILY PO 08/29/16 09:00 08/29/16 11:15 Furosemide 40 mg 40 mg BID@09,18 IV PUSH 08/29/16 09:00 (Levaquin 750 Mg Premix Inj) 150 ml @ 100 mls/hr Q24H IV 08/29/16 12:00 08/29/16 12:31 (Deltasone) 40 mg DAILY PO 08/29/16 11:00 08/29/16 12:31 Urinary Catheter: No Vascular Central Line Catheter: No A/P Problem List: (1) Congestive heart failure ICD Code: I50.9 Status: Acute (2) Exertional dyspnea ICD Code: R06.09 Status: Acute (3) Atrial fibrillation with RVR ICD Code: I48.91 Status: Acute Assessment and Plan 70-year-old female with hx of HTN, CHF, afib on Xarelto, NOAH, COPD, presents with SOB. Dyspnea: suspect multifactorial with pneumonia, reactive airway disease, possible CHF. CXR images reviewed, showed moderate enlargement of cardiac silhouette, otherwise clear. CT-PA ordered to eval for recurrent infiltrate, r/ out PE however is on Xarelto at home. Community Acquired Pneumonia, Failed Outpatient: suspected, patient with productive cough, completed 2 courses of azithromycin as outpatient. CXR with questionable right sided pneumonia. Start on IV Levaquin. Check sputum culture, urine legionella/pneumococcal antigens. Reactive Airway Disease/COPD: former smoker however patient denies formal diagnosis of COPD. + wheezing on exam. Start on duonebs q6h and prednisone 40mg daily. Consider pulmonology consult. Suspected CHF Exacerbation: BNP 99 however CXR with enlarged cardiac silhouette , patient responded well to diuresis with IV Lasix 60mg x1 in the ED. Checking echocardiogram. Continue on IV Lasix 40mg bid. Consult patient's packaging designer Dr. Dominguez. Generalized Weakness: suspect secondary to deconditioning with recent illness/ pneumonia and dyspnea. PT consulted, recommends [facility] PT. Atrial Fibrillation: continue patient's Xarelto and Cardizem 180mg daily. Monitor on telemetry. Hypertension: chronic, continue patient's Clonidine 0.1mg po bid. Sleep apnea: continue C Pap at night Morbid Obesity: BMI 47. Counseled on weight reduction. Heart healthy diet. DVT Prophylaxis: on Xarelto Written by Cynthia Doran, acting as scribe for Dr. Saenz on 08/29/16 at 10: 55. Problem Qualifiers (1) Congestive heart failure: Qualified Code: I50.9 - Acute on chronic congestive heart failure, unspecified congestive heart failure type Cynthia Doran PA-C Aug 29, 2016 10:55 Jesus Hicks MD Aug 30, 2016 22:13
[2016-08-29] MEDS: SODIUM CHLORIDE 0.9% FLUSH 5 ML FLUSH FLUSH SCH ×2 (11:14→20:31)
[2016-08-29] MEDS: DILTIAZEM-CD 180 MG CAP ER PO SCH (11:15)
[2016-08-29] MEDS: RIVAROXABAN 20 MG TAB PO SCH (11:15)
[2016-08-29] MEDS: predniSONE 20 MG TAB PO SCH (12:31)
[2016-08-29] MEDS: LEVOFLOXACIN 750 MG PREMIX INJ 150 ML IV SCH (12:31)
--- NOTE | 2016-08-29 13:19 | EC ---
Study Study Date:08/29/2016 STUDY CONCLUSIONS SUMMARY - Left ventricle: The cavity size was normal. Systolic function was at the lower limits of normal. The estimated ejection fraction was in the range of 50% to 55%. Although no diagnostic regional wall motion abnormality was identified, this possibility cannot be completely excluded on the basis of this study. - Aortic valve: Trace regurgitation. - Mitral valve: Mild regurgitation. - Left atrium: The atrium was moderately dilated. - Pulmonary arteries: PA peak pressure: 41mm Hg (S). If LV function is below 40, please consider prescribing an ACEI or ARB or document rationale for non-use. PROCEDURE DATA STUDY STATUS: Elective. Procedure: Transthoracic echocardiography. Image quality was fair. Scanning was performed from the parasternal, apical, and subcostal acoustic windows. Study completion: The patient tolerated the procedure well. Transthoracic echocardiography. M-mode, complete 2D, complete spectral Doppler, and color Doppler. Height: Height: 67in. Weight: Weight: 309.9lb. Body mass index: BMI: 48.6kg/m^2. Body surface area: BSA: 2.44m^2. Patient status: Inpatient. CARDIAC ANATOMY LEFT VENTRICLE: The cavity size was normal. Systolic function was at the lower limits of normal. The estimated ejection fraction was in the range of 50% to 55%. Although no diagnostic regional wall motion abnormality was identified, this possibility cannot be completely excluded on the basis of this study. AORTIC VALVE: The valve appears to be grossly normal. Doppler: There was no stenosis. Trace regurgitation. MITRAL VALVE: The valve appears to be grossly normal. Doppler: There was no evidence for stenosis. Mild regurgitation. LEFT ATRIUM: The atrium was moderately dilated. RIGHT VENTRICLE: Poorly visualized. PULMONIC VALVE: Not well visualized. Doppler: There was no evidence for stenosis. No significant regurgitation. TRICUSPID VALVE: The valve appears to be grossly normal. Doppler: There was no evidence for stenosis. Trace regurgitation. Patient weight: 309.9lb _Ejection fraction:_ 65-75% _Fractional shortening:_ 32% up to 5Kg 5-11.5Kg 11.6-22.9Kg 23-45Kg 45-57Kg Aortic Root 7-13 <17 13-22 17-27 17-27 LA diam 6-13 <23 24-38 33-47 37-40 RVID 10-17 7-15 7-15 7-18 8-17 LVIDd 12-22 <32 24-38 33-47 37-40 LVPW 2-4 3-6 5-7 6-8 7-8 IVS 2-4 3-6 5-7 6-8 7-8 BASIC MEASUREMENTS ADULT Normal Left ventricle LV internal dimension, ED, chordal level, *55.4 mm 43-52 PLAX LV internal dimension, ES, chordal level, *44 mm 23-38 PLAX Fractional shortening, chordal level, PLAX *21 % >29 LV posterior wall thickness, ED 13.6 mm IVS/LVPW ratio, ED *1.37 <1.3 Ventricular septum Septal thickness, ED 18.6 mm Aortic valve Leaflet separation 20 mm 15-26 Right ventricle RV internal dimension, ED, PLAX 35.7 mm 19-38 BASIC MEASUREMENTS ADULT Normal Aortic valve Leaflet separation 20 mm 15-26 Aorta Root diameter, ED 31 mm 20-37 Left atrium Anterior-posterior dimension, ES *54 mm 19-40 Anterior-posterior dimension index, ES *2.21 cm/m^2 <2.2 LA/aortic root ratio 1.74 DOPPLER MEASUREMENTS ADULT Normal Main pulmonary artery Pressure, S *41 mm Hg =30 Tricuspid valve Regurgitant peak velocity 279 cm/s Peak RV-RA gradient, S 31 mm Hg Maximal regurgitant velocity 279 cm/s Systemic veins Estimated CVP 10 mm Hg Right ventricle RV pressure, S *41 mm Hg <30 LEGEND: Mean values are shown as u=mean value. Asterisk (*) hassan values outside specified normal range. Prepared and signed by Michael Kelley [id number]
[2016-08-29] MEDS ORDERED: RESP: ALBUTEROL 2.5 MG/IPRATROPIUM 0.5 MG NEB (SCH) NEB (14:00)
[2016-08-29] MEDS ORDERED: IOHEXOL 350 MG/ML 10 ML VIAL (for RAD DIAG) IV ONE (15:01)
--- NOTE | 2016-08-29 15:21 | RADRPT ---
EXAM DATE/TIME: 08/29/2016 14:48 [facility] COMPARISON: CHEST SINGLE AP, August 28, 2016, 19:44. INDICATIONS : Dyspnea, cough, shortness of breath, general malaise. IV CONTRAST: 80 cc Omnipaque 350 (iohexol) IV RADIATION DOSE: 33.47 CTDIvol (mGy) MEDICAL HISTORY : Cardiovascular disease. Hypertension. Breast reduction. SURGICAL HISTORY : Appendectomy. ENCOUNTER: Initial ACUITY: 1 day PAIN SCALE: 5/10 LOCATION: chest TECHNIQUE: Volumetric scanning of the chest was performed using a pulmonary embolism protocol MIP images were re constructed. Using automated exposure control and adjustment of the mA and/or kV according to patien t size, radiation dose was kept as low as reasonably achievable to obtain optimal diagnostic quality images. FINDINGS: PULMONARY ARTERIES: Suboptimal opacification of the pulmonary arteries. No central pulmonary emboli. LUNGS: There is no consolidation or pneumothorax . No concerning pulmonary nodule is visualized. PLEURAE: There is no pleural thickening or pleural effusion. MEDIASTINUM: There is good visualization of the great vessels of the middle mediastinum. No evidence of mediastin al or hilar adenopathy/mass. Cardiomegaly with dilated right heart and left atrium. Coronary artery c alcifications. MUSCULOSKELETAL: Within normal limits for patient age. MISCELLANEOUS: The visualized upper abdominal organs demonstrate no acute abnormality. Nodular liver. CONCLUSION: 1. Suboptimal opacification of the pulmonary arteries but no central pulmonary emboli. 2. Cardiomegaly with enlarged left atrium and dilated right heart. 3. Minimal bibasilar densities. Gibson Lofton MD on August 29, 2016 at 15:12 Board Certified Radiologist. This report was verified electronically.
[2016-08-30] VITALS (11 sets, daily range): BP systolic 133–144; BP diastolic 67–93; PULSE 82–142; RESP 18–20; TEMP 95.7–98.2; O2SAT 96–100
--- NOTE | 2016-08-30 05:39 | MB ---
cc: YAA MADISON M.D. DATE OF CONSULTATION 08/29/2016 REASON FOR CONSULTATION Shortness of breath and possible heart failure. HISTORY OF PRESENT ILLNESS Mrs. Jenkins is a 70-year-old -[place] female with history of morbid obesity, high blood pressure, hyperlipidemia, atrial fibrillation, very difficult to control, sleep apnea, COPD, admitted through the emergency room due to shortness of breath. She refers she was at home for the past couple of days with shortness of breath, decided to come to the emergency room. She was found in atrial fibrillation with fast ventricular response, also a pneumonia versus heart failure suspected. I was consulted for evaluation and management. The chart was reviewed. The patient was evaluated. ALLERGIES SULFA. SOCIAL HISTORY The patient quit smoking five years ago. FAMILY HISTORY Noncontributory to her current medical condition. CURRENT MEDICATIONS 1. Lasix IV. 2. Levaquin 750 mg a day. 3. Albuterol inhaler. 4. Catapres p.r.n. 5. Cardizem 180 mg a day, that is Cardizem long-acting. 6. Lasix 40 mg twice a day. 7. Potassium. 8. Prednisone. 9. Xarelto 20 mg a day. REVIEW OF SYSTEMS The patient refers currently no chest pain or chest discomfort, shortness of breath, palpitations but no fever. PHYSICAL EXAMINATION GENERAL: Alert, fully oriented, pleasant as usual. VITAL SIGNS: Blood pressure on evaluation 155/93, pulse 95, respiratory rate 18. LUNGS: Ventilated. Bilateral wheezing. CARDIOVASCULAR: S1, S2. Irregular. ABDOMEN: Soft, obese. No mass or bruit. EXTREMITIES: No edema. ELECTROCARDIOGRAM Indicated atrial fibrillation, diffuse ST changes. Rate is around 100 beats per minute. LABORATORY DATA Hemoglobin 13.8, white blood cells 6.0. Potassium 4.2, creatinine 1.03. Troponin less than 0.02. TSH 1.94. BNP is only 99. ASSESSMENT AND RECOMMENDATION Mrs. Alicias condition continues to improve. She apparently has a pneumonia instead of heart failure. She is morbidly obese. She has atrial fibrillation. The last echo indicated an ejection fraction of around 50%, that was today. At this point I am going to D/C the Lasix IV, given her some Lasix 40 mg p.o. only in the morning. Her heart rate needs to be controlled. She is not a good candidate for atrial fibrillation ablation due to her severe morbid obesity and most likely due to her left atrial enlargement. The case was extensively discussed with her. I advised her to lose some weight. Currently, compared to last year she is in a wheelchair. She needs to lose weight and exercise. I will follow her during the hospitalization. Yaa Madison MD HS/SSB /11:24 PM /5:25 AM
[2016-08-30] MEDS: RESP: ALBUTEROL 2.5 MG/IPRATROPIUM 0.5 MG NEB (PRN) NEB (06:21)
--- NOTE | 2016-08-30 06:48 | EKG ---
Date Performed: 08/29/2016 Time Performed: 09:22:31 PTAGE: 70 years EKG: ATRIAL FIBRILLATION NONSPECIFIC T-WAVE ABNORMALITY ABNORMAL ECG PREVIOUS TRACING : 08/29/2016 02.29 Compared to prior tracing no significant change DOCTOR: Dick Lemons Interpretating Date/Time 08/30/2016 06:44:46
--- NOTE | 2016-08-30 06:55 | EKG ---
Date Performed: 08/29/2016 Time Performed: 02:29:01 PTAGE: 70 years EKG: ATRIAL FIBRILLATION NONSPECIFIC T-WAVE ABNORMALITY ABNORMAL RHYTHM ECG PREVIOUS TRACING : 08/28/2016 20.02 Compared to prior tracing no significant change DOCTOR: Dick Lemons Interpretating Date/Time 08/30/2016 06:53:22
--- NOTE | 2016-08-30 07:00 | EKG ---
Date Performed: 08/28/2016 Time Performed: 20:02:48 PTAGE: 70 years EKG: ATRIAL FIBRILLATION WITH RAPID VENTRICULAR RESPONSE NONSPECIFIC ST & T-WAVE ABNORMALITY ABN ORMAL ECG PREVIOUS TRACING : 07/28/2016 20.35 Compared to prior tracing no significant change DOCTOR: Dick Lemons Interpretating Date/Time 08/30/2016 06:58:39
[2016-08-30] MEDS: RESP: ALBUTEROL 2.5 MG/IPRATROPIUM 0.5 MG NEB (SCH) NEB ×3 (07:21→20:18)
[2016-08-30] MEDS: DILTIAZEM-CD 180 MG CAP ER PO SCH (08:56)
[2016-08-30] MEDS: RIVAROXABAN 20 MG TAB PO SCH (08:56)
[2016-08-30] MEDS: predniSONE 20 MG TAB PO SCH (08:57)
[2016-08-30] MEDS: cloNIDine HCL 0.1 MG TAB PO SCH ×2 (08:58→23:14)
[2016-08-30] MEDS: SODIUM CHLORIDE 0.9% FLUSH 5 ML FLUSH FLUSH SCH ×2 (08:58→23:15)
[2016-08-30] MEDS: LEVOFLOXACIN 750 MG PREMIX INJ 150 ML IV SCH (11:46)
--- NOTE | 2016-08-30 12:36 | PD.CARD.PN ---
Subjective Subjective Remarks Still has some SOB, wheezing. Wants her catheter out. Objective Medications Current Medications Medications (Trade) Dose Ordered Sig/Audrey Route Start Time Stop Time Status Last Admin (NS Flush) 2 ml UNSCH PRN FLUSH 08/28/16 22:00 (NS Flush) 2 ml BID FLUSH 08/29/16 09:00 08/30/16 08:58 (Narcan Inj) 0.4 mg UNSCH PRN IV 08/28/16 22:00 (Catapres) 0.1 mg BID PO 08/29/16 09:00 08/30/16 08:58 (Xarelto) 20 mg DAILY PO 08/29/16 09:00 08/30/16 08:56 Diltiazem HCl 180 mg 180 mg DAILY PO 08/29/16 09:00 08/30/16 08:56 (Levaquin 750 Mg Premix Inj) 150 ml @ 100 mls/hr Q24H IV 08/29/16 12:00 08/30/16 11:46 (Deltasone) 40 mg DAILY PO 08/29/16 11:00 08/30/16 08:57 (Lasix) 40 mg DAILY PO 08/30/16 09:00 Vital Signs / I&O Vital Signs Date Time Temp Pulse Resp B/P Pulse Ox O2 Delivery O2 Flow Rate FiO2 08/30/16 08:00 97.1 91 20 143/80 100 08/30/16 07:21 99 Nasal Cannula 2.00 08/30/16 06:46 96.8 84 18 133/80 98 08/30/16 06:21 98 Nasal Cannula 08/30/16 02:00 92 08/30/16 00:00 97.8 85 20 142/74 98 08/29/16 21:22 96.5 89 18 139/69 97 08/29/16 19:42 97.9 94 18 146/79 97 08/29/16 15:45 98.3 95 22 155/93 96 I/O 08/29/16 08/29/16 08/29/16 08/30/16 08/30/16 08/30/16 07:00 15:00 23:00 07:00 15:00 23:00 Output Total 1500 ml 300 ml 450 ml Balance -1500 ml -300 ml -450 ml Output Urine Total 1500 ml 300 ml 450 ml # Voids 0 # Bowel Movements 0 0 Physical Exam GENERAL: Morbidly obese, well-developed patient. SKIN: Warm and dry. HEAD: Normocephalic. EYES: No scleral icterus. No injection or drainage. NECK: Supple, trachea midline. CARDIOVASCULAR: Controlled rate and irregular rhythm without murmurs, gallops, or rubs. RESPIRATORY: Breath sounds equal bilaterally. Scatterred wheezes throughout. GASTROINTESTINAL: Abdomen obese, soft, non-tender, nondistended. EXTREMITIES: No cyanosis, 2+ dependent edema NEUROLOGICAL: Awake, alert, and oriented x 3. Non-focal. Laboratory Laboratory Tests Test 08/30/16 06:34 Hepatitis A IgM Antibody REACTIVE Hepatitis B Surface Antigen NEGATIVE Hepatitis B Core IgM Antibody NEGATIVE Hepatitis C Antibody NEGATIVE Imaging Last [address] Angiography 08/29/16 0000 Signed Impressions: Service Date/Time: August 14:48 - CONCLUSION: 1. Suboptimal opacification of the pulmonary arteries but no central pulmonary emboli. 2. Cardiomegaly with enlarged left atrium and dilated right heart. 3. Minimal bibasilar densities. Gibson Lofton MD Chest X-Ray 08/28/161943 Signed Impressions: Service Date/Time: Sunday, August 28, 2016 19:44 - CONCLUSION: Moderate enlargement cardiac silhouette. No change.. Gibson Lofton MD Assessment and Plan Problem List: (1) Lower extremity edema Assessment and Plan: Improving on lasix. (2) Shortness of breath Assessment and Plan: Receiving nebs, oxygenating adequately. On levaquin, prednisone, says she is breathing better. Appears to be more pulmonary in nature , Echo shows EF 55%. (3) A-fib Assessment and Plan: Rate controlled, on Xarelto, diltiazem. Assessment and Plan Stable, improving on current therapy. D/W pt., Dr. Dominguez. Problem Qualifiers (1) Lower extremity edema: Qualified Code: R60.0 - Bilateral edema of lower extremity (2) A-fib: Qualified Code: I48.2 - Chronic atrial fibrillation Vero Garcia Aug 30, 2016 12:36
[2016-08-30] MEDS ORDERED: ALPRAZolam 0.5 MG TAB PO PRN (20:30)
--- NOTE | 2016-08-30 22:29 | HHI.PR ---
Subjective Remarks Patient states that she refuses to taking her Lasix without her potassium because she gets cramping Patient is requesting to be restarted on potassium Patient states runs of breath is better however "I am not there yet" Denies fevers or chills A febrile [place] of breath is better denies chest pain Objective Vitals Vital Signs Date Time Temp Pulse Resp B/P Pulse Ox O2 Delivery O2 Flow Rate FiO2 08/30/16 20:20 98 Nasal Cannula 2.00 08/30/16 20:00 97.2 94 20 137/93 98 08/30/16 19:17 142 08/30/16 16:00 98.2 82 20 144/74 96 08/30/16 12:00 95.7 86 20 142/67 98 08/30/16 08:00 97.1 91 20 143/80 100 08/30/16 07:21 99 Nasal Cannula 2.00 08/30/16 06:46 96.8 84 18 133/80 98 08/30/16 06:21 98 Nasal Cannula 08/30/16 02:00 92 08/30/16 00:00 97.8 85 20 142/74 98 I/O 08/29/16 08/29/16 08/29/16 08/30/16 08/30/16 08/30/16 07:00 15:00 23:00 07:00 15:00 23:00 Intake Total 480 ml Output Total 1500 ml 300 ml 450 ml 675 ml Balance -1500 ml -300 ml -450 ml -195 ml Intake Oral 480 ml Output Urine Total 1500 ml 300 ml 450 ml 675 ml # Voids 0 # Bowel Movements 0 0 0 Result Diagram: 08/29/16 0356 08/29/16 [address] Angiography 08/29/16 0000 Signed Impressions: Service Date/Time: August 14:48 - CONCLUSION: 1. Suboptimal opacification of the pulmonary arteries but no central pulmonary emboli. 2. Cardiomegaly with enlarged left atrium and dilated right heart. 3. Minimal bibasilar densities. Gibson Lofton MD Chest X-Ray 08/28/161943 Signed Impressions: Service Date/Time: Sunday, August 28, 2016 19:44 - CONCLUSION: Moderate enlargement cardiac silhouette. No change.. Gibson Lofton MD Objective Remarks GENERAL: Well-nourished, well-developed elderly female patient in [facility]. SKIN: Warm and dry. No rash. HEAD: Normocephalic. Atraumatic. EYES: Pupils equal and round. No scleral icterus. No injection or drainage. ENT: No nasal bleeding or discharge. Mucous membranes pink and moist. NECK: Supple. Trachea midline. CARDIOVASCULAR: Regular rate and rhythm. S1, S2 noted. No murmur appreciated. RESPIRATORY: No accessory muscle use. Diffuse expiratory wheezing. Breath sounds decreased bilaterally. GASTROINTESTINAL: Abdomen soft, non-tender, nondistended. Normoactive bowel sounds x4. MUSCULOSKELETAL: No obvious deformities. Extremities without clubbing, cyanosis , or edema. NEUROLOGICAL: Awake and alert. No obvious cranial nerve deficits. Motor grossly within normal limits. Normal speech. PSYCHIATRIC: Appropriate mood and affect; insight and judgment normal. Medications and IVs Current Medications Medications (Trade) Dose Ordered Sig/Audrey Route Start Time Stop Time Status Last Admin (NS Flush) 2 ml UNSCH PRN FLUSH 08/28/16 22:00 (NS Flush) 2 ml BID FLUSH 08/29/16 09:00 08/30/16 08:58 (Narcan Inj) 0.4 mg UNSCH PRN IV 08/28/16 22:00 (Catapres) 0.1 mg BID PO 08/29/16 09:00 08/30/16 08:58 (Xarelto) 20 mg DAILY PO 08/29/16 09:00 08/30/16 08:56 Diltiazem HCl 180 mg 180 mg DAILY PO 08/29/16 09:00 08/30/16 08:56 (Levaquin 750 Mg Premix Inj) 150 ml @ 100 mls/hr Q24H IV 08/29/16 12:00 08/30/16 11:46 (Deltasone) 40 mg DAILY PO 08/29/16 11:00 08/30/16 08:57 (Lasix) 40 mg DAILY PO 08/30/16 09:00 (KCl) 20 meq DAILY PO 08/30/16 20:30 (Xanax) 0.5 mg Q8H PRN PO 08/30/16 20:30 Urinary Catheter: No Vascular Central Line Catheter: No A/P Problem List: (1) Shortness of breath ICD Code: R06.02 Status: Acute Plan: Suspect multifactorial due to pneumonia and COPD exacerbation and acute to typical exacerbation. Chest x-ray images reviewed, showed moderate enlargement of cardiac silhouette, otherwise clear. CTA shows some optimal opacification of the pulmonary arteries but no central pulmonary emboli. Cardiomegaly with enlarged left atrium and dilated right heart. Minimal bibasilar densities. Dyspnea seems to be more pulmonary in origin. (2) COPD with acute exacerbation ICD Code: J44.1 Status: Acute Plan: Former smoker however patient denies from a diagnosis of COPD. Patient still with persistent wheezing on exam. The patient states that she follows up with pulmonology - Dr. Ballard which I will consult. We'll start incentive spirometer. The patient still has significant wheezing. I will discontinue the oral prednisone and so the patient IV Solumedrol. (3) Atrial fibrillation with RVR ICD Code: I48.91 Status: Acute Plan: Laboratory control. Continue Cardizem and Xarelto. (4) Acute on chronic diastolic (congestive) heart failure ICD Code: I50.33 Status: Acute Plan: Bilateral extremity edema improving with Lasix. I will start potassium which the patient takes concurrently with Lasix at home. Go-cart addendum showed normal systolic function with an EF of 50-55%, trace AR , trace MR. Appreciate card reader consultation recommendations. (5) Lower extremity edema ICD Code: R60.0 Status: Acute Plan: Improving. Continue Lasix. (6) Generalized weakness ICD Code: R53.1 Status: Chronic Plan: PT evaluation appreciated. The patient will need home with home health PT. (7) HTN (hypertension) ICD Code: I10 Status: Acute Plan: Seems to be stable. Continue Cardizem. Continue to monitor vital signs. (8) NOAH (obstructive sleep apnea) ICD Code: G47.33 Status: Acute Plan: Do CPAP at night. (9) Morbid obesity ICD Code: E66.01 Status: Acute Plan: Patient with BMI of 47. Patient counseled on weight loss. Heart healthy diet. Assessment and Plan DVT prophylaxis: Patient on [place]. GI prophylaxis, I will add proton pump inhibitor since patient is on steroids. Discharge Planning Pending clinical improvement. The patient still with significant dyspnea and wheezing. Continue to monitor and the medical floor. Will need home health upon DC. Case management to help in DC plans. Problem Qualifiers (1) Lower extremity edema: Qualified Code: R60.0 - Bilateral edema of lower extremity (2) HTN (hypertension): Qualified Code: I10 - Essential hypertension Jesus Hicks MD Aug 30, 2016 22:29
[2016-08-30] MEDS: FUROSEMIDE 40 MG TAB PO SCH (23:14)
[2016-08-30] MEDS: POTASSIUM CHLORIDE 20 MEQ CONTROLLED RELEASE TAB PO SCH (23:14)
[2016-08-31] VITALS (10 sets, daily range): BP systolic 126–173; BP diastolic 62–98; PULSE 75–104; RESP 18–20; TEMP 96.4–97.7; O2SAT 92–99
[2016-08-31] MEDS: RESP: ALBUTEROL 2.5 MG/IPRATROPIUM 0.5 MG NEB (PRN) NEB ×2 (00:29→06:18)
[2016-08-31] MEDS: methylPREDNISolone SOD SUCC 40 MG/1 ML VIAL IV PUSH SCH ×3 (06:10→12:13)
[2016-08-31] MEDS: SODIUM CHLORIDE 0.9% FLUSH 5 ML FLUSH FLUSH SCH ×2 (08:34→21:00)
[2016-08-31] MEDS: RIVAROXABAN 20 MG TAB PO SCH (08:34)
[2016-08-31] MEDS: DILTIAZEM-CD 180 MG CAP ER PO SCH (08:34)
[2016-08-31] MEDS: cloNIDine HCL 0.1 MG TAB PO SCH ×2 (08:34→22:13)
[2016-08-31] MEDS: FUROSEMIDE 40 MG TAB PO SCH (08:34)
[2016-08-31] MEDS: POTASSIUM CHLORIDE 20 MEQ CONTROLLED RELEASE TAB PO SCH (08:34)
[2016-08-31 08:43] LABS: AUTOMATED NEUTROPHIL # 6.6 TH/MM3 (1.8-7.7); BASOPHIL % 0.3 % (0.0-2.0); HEMATOCRIT 42.6 % (35.0-46.0); HEMO FLAGS DIFF FINAL; LYMPH % 14.1 % (9.0-44.0); LYMPHOCYTE # 1.1 TH/MM3 (1.0-4.8); MEAN CELL VOLUME 87.2 FL (80.0-100.0); MEAN CORPUSCULAR HGB CONC 33.3 % (32.0-36.0); MONO % 1.7 % (0.0-8.0); NEUT % 83.9 % (16.0-70.0); PLATELET COUNT 199 TH/MM3 (150-450); RED BLOOD COUNT 4.89 MIL/MM3 (4.00-5.30); RED CELL DISTRIBUTION WIDTH 15.5 % (11.6-17.2); WHITE BLOOD COUNT 7.8 TH/MM3 (4.0-11.0)
[2016-08-31 08:57] LABS: ALT (GPT) 19 U/L (10-53); ANION GAP 7 MEQ/L (5-15); AST (GOT) 13 U/L (15-37); BLOOD UREA NITROGEN 15 MG/DL (7-18); CHLORIDE 106 MEQ/L (98-107); GLOMERULAR FILTRATION RATE 74 ML/MIN (>89); MAGNESIUM 1.9 MG/DL (1.5-2.5); POTASSIUM 4.5 MEQ/L (3.5-5.1); SODIUM (NA) 140 MEQ/L (136-145)
[2016-08-31 09:00] LABS: ALKALINE PHOSPHATASE 51 U/L (45-117); TOTAL BILIRUBIN ADULT 0.3 MG/DL (0.2-1.0)
[2016-08-31] MEDS: RESP: ALBUTEROL 2.5 MG/IPRATROPIUM 0.5 MG NEB (SCH) NEB ×3 (09:28→21:37)
[2016-08-31] MEDS: LEVOFLOXACIN 750 MG PREMIX INJ 150 ML IV SCH (12:13)
--- NOTE | 2016-08-31 16:36 | HHI.PR ---
Subjective Remarks Patient states she feels much better sob improving cough better denies cp Objective Vitals Vital Signs Date Time Temp Pulse Resp B/P Pulse Ox O2 Delivery O2 Flow Rate FiO2 08/31/16 13:10 97.4 88 20 137/67 95 08/31/16 09:30 96 21 08/31/16 09:01 97.7 96 20 173/98 92 08/31/16 08:46 104 08/31/16 04:00 97.1 75 20 126/91 99 08/31/16 00:00 97.0 83 18 130/85 98 08/30/16 20:20 98 Nasal Cannula 2.00 08/30/16 20:00 97.2 94 20 137/93 98 08/30/16 19:17 142 I/O 08/30/16 08/30/16 08/30/16 08/31/16 08/31/16 08/31/16 07:00 15:00 23:00 07:00 15:00 23:00 Intake Total 480 ml 236 ml Output Total 450 ml 675 ml 2600 ml Balance -450 ml -195 ml -2600 ml 236 ml Intake Oral 480 ml 236 ml Output Urine Total 450 ml 675 ml 2600 ml Bladder Scan Volume Amount # Voids 2 # Bowel Movements 0 0 1 Result Diagram: 08/31/16 0807 08/31/16 [address] Angiography 08/29/16 0000 Signed Impressions: Service Date/Time: August 14:48 - CONCLUSION: 1. Suboptimal opacification of the pulmonary arteries but no central pulmonary emboli. 2. Cardiomegaly with enlarged left atrium and dilated right heart. 3. Minimal bibasilar densities. Gibson Lofton MD Chest X-Ray 08/28/161943 Signed Impressions: Service Date/Time: Sunday, August 28, 2016 19:44 - CONCLUSION: Moderate enlargement cardiac silhouette. No change.. Gibson Lofton MD Objective Remarks GENERAL: Well-nourished, well-developed elderly female patient in NAD. SKIN: Warm and dry. No rash. HEAD: Normocephalic. Atraumatic. EYES: Pupils equal and round. No scleral icterus. No injection or drainage. ENT: No nasal bleeding or discharge. Mucous membranes pink and moist. NECK: Supple. Trachea midline. CARDIOVASCULAR: Regular rate and rhythm. S1, S2 noted. No murmur appreciated. RESPIRATORY: No accessory muscle use. Diffuse expiratory wheezing. Breath sounds decreased bilaterally. GASTROINTESTINAL: Abdomen soft, non-tender, nondistended. Normoactive bowel sounds x4. MUSCULOSKELETAL: No obvious deformities. Extremities without clubbing, cyanosis , or edema. NEUROLOGICAL: Awake and alert. No obvious cranial nerve deficits. Motor grossly within normal limits. Normal speech. PSYCHIATRIC: Appropriate mood and affect; insight and judgment normal. Medications and IVs Current Medications Medications (Trade) Dose Ordered Sig/Audrey Route Start Time Stop Time Status Last Admin (NS Flush) 2 ml UNSCH PRN FLUSH 08/28/16 22:00 (NS Flush) 2 ml BID FLUSH 08/29/16 09:00 08/31/16 08:34 (Narcan Inj) 0.4 mg UNSCH PRN IV 08/28/16 22:00 (Catapres) 0.1 mg BID PO 08/29/16 09:00 08/31/16 08:34 (Xarelto) 20 mg DAILY PO 08/29/16 09:00 08/31/16 08:34 Diltiazem HCl 180 mg 180 mg DAILY PO 08/29/16 09:00 08/31/16 08:34 (Levaquin 750 Mg Premix Inj) 150 ml @ 100 mls/hr Q24H IV 08/29/16 12:00 08/31/16 12:13 (Lasix) 40 mg DAILY PO 08/30/16 09:00 08/31/16 08:34 (KCl) 20 meq DAILY PO 08/30/16 20:30 08/31/16 08:34 (Xanax) 0.5 mg Q8H PRN PO 08/30/16 20:30 08/30/16 23:14 (SoluMEDROL INJ) 40 mg Q6HR IV PUSH 08/31/16 00:00 08/31/16 12:13 Urinary Catheter: No Vascular Central Line Catheter: No A/P Problem List: (1) Shortness of breath ICD Code: R06.02 Status: Acute (2) COPD with acute exacerbation ICD Code: J44.1 Status: Acute (3) Atrial fibrillation with RVR ICD Code: I48.91 Status: Acute (4) Acute on chronic diastolic (congestive) heart failure ICD Code: I50.33 Status: Acute (5) Lower extremity edema ICD Code: R60.0 Status: Acute (6) Generalized weakness ICD Code: R53.1 Status: Chronic (7) HTN (hypertension) ICD Code: I10 Status: Acute (8) NOAH (obstructive sleep apnea) ICD Code: G47.33 Status: Acute (9) Morbid obesity ICD Code: E66.01 Status: Acute Assessment and Plan (1) Shortness of breath Plan: Suspect multifactorial due to pneumonia and COPD exacerbation and acute to typical exacerbation. Chest x-ray images reviewed, showed moderate enlargement of cardiac silhouette, otherwise clear. CTA shows some optimal opacification of the pulmonary arteries but no central pulmonary emboli. Cardiomegaly with enlarged left atrium and dilated right heart. Minimal bibasilar densities. Dyspnea seems to be more pulmonary in origin. (2) COPD with acute exacerbation \ Plan: Former smoker however patient denies from a diagnosis of COPD. Patient still with persistent wheezing on exam. The patient states that she follows up with pulmonology - Dr. Ballard which I will consult. We'll start incentive spirometer. The patient still has significant wheezing. I will discontinue the oral prednisone and so the patient IV Solumedrol. 2/4 Wheezing improving - Will taper dose of IV Solumedrol to 40 mg IV q 12 hrs. Continue IV levaquin. Continue with supplemental Epogen to keep oxygen saturation more than 92%. Continue incentive spirometry. (3) Atrial fibrillation with RVR Plan: Laboratory control. Continue Cardizem and Xarelto. (4) Acute on chronic diastolic (congestive) heart failure Plan: Bilateral extremity edema improving with Lasix. I will start potassium which the patient takes concurrently with Lasix at home. Go-cart addendum showed normal systolic function with an EF of 50-55%, trace AR , trace MR. Appreciate shared services manager consultation recommendations. (5) Lower extremity edema Plan: Improving. Continue Lasix. (6) Generalized weakness Plan: PT evaluation appreciated. The patient will need home with home health PT. (7) HTN (hypertension) Plan: Seems to be stable. Continue Cardizem. Continue to monitor vital signs. (8) NOAH (obstructive sleep apnea) Plan: Continue with CPAP at night. (9) Morbid obesity Plan: Patient with BMI of 47. Patient counseled on weight loss. Heart healthy diet. DVT prophylaxis: Patient on Xarelto GI prophylaxis,Continue PPI Discharge Planning Pending clinical improvement. The patient still with significant dyspnea and wheezing. Continue to monitor and the medical floor. Will need home health upon DC. Case management to help in DC plans. Problem Qualifiers (1) Lower extremity edema: Qualified Code: R60.0 - Bilateral edema of lower extremity (2) HTN (hypertension): Qualified Code: I10 - Essential hypertension Jesus Hicks MD Aug 31, 2016 16:36
[2016-09-01] VITALS (8 sets, daily range): BP systolic 129–153; BP diastolic 56–80; PULSE 76–94; RESP 20–22; TEMP 96.5–97.8; O2SAT 94–98
[2016-09-01] MEDS ORDERED: methylPREDNISolone SOD SUCC 40 MG/1 ML VIAL IV PUSH SCH
[2016-09-01] MEDS: predniSONE 50 MG TAB PO SCH ×2 (01:49→09:51)
[2016-09-01] MEDS: RESP: ALBUTEROL 2.5 MG/IPRATROPIUM 0.5 MG NEB (PRN) NEB (05:15)
[2016-09-01] MEDS: SODIUM CHLORIDE 0.9% FLUSH 5 ML FLUSH FLUSH SCH ×2 (09:00→20:25)
[2016-09-01] MEDS: cloNIDine HCL 0.1 MG TAB PO SCH ×2 (09:00→20:24)
[2016-09-01] MEDS: RESP: ALBUTEROL 2.5 MG/IPRATROPIUM 0.5 MG NEB (SCH) NEB ×3 (09:08→20:10)
[2016-09-01] MEDS: RIVAROXABAN 20 MG TAB PO SCH (09:51)
[2016-09-01] MEDS: FUROSEMIDE 40 MG TAB PO SCH (09:51)
[2016-09-01] MEDS: POTASSIUM CHLORIDE 20 MEQ CONTROLLED RELEASE TAB PO SCH (09:51)
[2016-09-01] MEDS: DILTIAZEM-CD 180 MG CAP ER PO SCH (09:51)
[2016-09-01] MEDS: LEVOFLOXACIN 750 MG PREMIX INJ 150 ML IV SCH (12:00)
[2016-09-01 13:54] LABS: BLOOD GAS BASE EXCESS 3.2 mmol/L (-2-2); BLOOD GAS CARBOXYHEMOGLOBIN 1.2 % (0-4); BLOOD GAS HCO3 27 mmol/L (22-26); BLOOD GAS METHEMOGLOBIN 0.6 % (0-2); BLOOD GAS O2 HGB SATURATION 96 % (90-100); BLOOD GAS OXYGEN CONTENT 19.5 Vol % (12.0-20.0); BLOOD GAS PCO2 39 mmHg (38-42); BLOOD GAS PO2 90 mmHg (61-120); BLOOD GAS TOTAL HGB 14.5 G/DL (12.0-16.0); TEMP CORR TO 98.6
[2016-09-01 13:55] LABS: CRITICAL VALUE NO; DRAW SITE RT RADIAL; FIO2 21 %; NUMBER OF ARTERIAL PUNCTURES 1; STAT NO; ULNAR PULSE PRESENT
--- NOTE | 2016-09-01 16:11 | MB ---
cc: ILIA JIMENEZ MD DATE OF CONSULTATION: 09/01/2016 REASON FOR CONSULTATION: COPD and sleep apnea. REQUESTING PHYSICIAN: Dr. Saenz. HISTORY OF PRESENT ILLNESS: Ms. Jnekins is a 70-year-old -[place] obese female with history of obstructive sleep apnea. She has a C-PAP machine but she has lost the cord and she has not been using the machine. She came to the hospital with complaint of shortness of breath, has bronchitis, cough and congestion and some palpitations. She did not have any fever or chills. She has been feeling sick for the last couple of months and she saw her primary doctor, Dr. Tam, and was given antibiotics. She did not get better and she came to the hospital. She had a workup done. Her CBC showed white blood cell count 7.8, hemoglobin 14.2, hematocrit 42.6, MCV 87, platelet count 199,000. Sodium 140, potassium 4.5, chloride 106, carbon dioxide 27, BUN 15, creatinine 0.91. Her CTA of the chest shows no pulmonary embolism. She has cardiomegaly with an enlarged left atrium and dilated right heart and has minimal basal densities. PAST MEDICAL HISTORY: Her past medical history is significant for: 1. History of sleep apnea. 2. Hypertension. 3. Hyperlipidemia. 4. Both knee replacement. 5. Appendectomy. 6. History of breast reduction surgery. 7. Atrial fibrillation. MEDICATIONS: She is currently takin. Prednisone 50 milligrams a day. 2. Potassium 20 milliequivalents. 3. Xanax 0.5 milligrams q. 8 hour. 4. Lasix 40 milligrams a day. 5. Levaquin 750 milligrams a day. 6. Clonidine 0.1 milligram twice a day. 7. Xarelto 20 milligrams a day. 8. Diltiazem 180 milligrams a day. 9. Albuterol and Atrovent nebulizer treatments. ALLERGIES: SHE HAS ALLERGY TO SULFA. SOCIAL HISTORY: She has a history of smoking which she quit many years ago. Drinks occasionally. 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 FAMILY HISTORY: She has three children, one was killed. REVIEW OF SYSTEMS: She has had no weight loss. She has sleep apnea but is not using C-PAP machine. No seizure, stroke or epilepsy. She has a pulmonary embolism and takes Xarelto. PHYSICAL EXAMINATION: GENERAL: An obese female, mild short of breath, not in acute distress. VITAL SIGNS: Blood pressure 129/75, heart rate 98, respirations 20, temperature 96.5, saturation 97% on two liters nasal cannula. HEAD, EYES, EARS, NOSE, THROAT: Pupils are equal and reactive to light. Oral mucosa and nasal mucosa are normal. NECK: The neck is supple. JVP not raised. CHEST: Air entry equal bilaterally. She has faint rhonchi. CARDIOVASCULAR: S1 and S2 normal. ABDOMEN: Abdomen benign. EXTREMITIES: No edema. IMPRESSION: 1. COPD with exacerbation. 2. Basal infiltrate. 3. Obstructive sleep apnea. 4. Atrial fibrillation. 5. Morbid obesity. 6. Hypertension. PLAN: I discussed with the patient and advised her that she should start using her C-PAP machine. She will have a follow up with Dr. Kennedy to re-start her C-PAP machine. 2. Continue p.o. steroids. 3. Antibiotics. 4. Aerosol treatments. 5. I will also check her blood gas. Further treatment will depend on the course in the hospital. Thank you, Dr. Saenz, for this consult. MD VANCE Norton/FABIENNE /1:36 PM /4:01 PM
--- NOTE | 2016-09-01 16:40 | HHI.PR ---
Subjective Remarks Patient states that cough and breathing are much improved Denies fevers or chills Complains of dyspnea on exertion Blood sugar elevated. Objective Vitals Vital Signs Date Time Temp Pulse Resp B/P Pulse Ox O2 Delivery O2 Flow Rate FiO2 09/01/16 16:00 97.8 93 20 132/56 98 09/01/16 12:02 96.5 93 20 129/75 96 09/01/16 09:11 97 Nasal Cannula 2.00 09/01/16 08:05 97.1 87 20 135/74 95 09/01/16 08:00 89 09/01/16 04:02 96.6 77 22 138/80 96 09/01/16 00:25 96.9 94 20 136/69 95 08/31/16 21:37 97 21 08/31/16 20:12 96.4 93 20 139/72 98 08/31/16 20:00 93 08/31/16 17:14 96.8 87 20 131/62 96 I/O 08/31/16 08/31/16 08/31/16 09/01/16 09/01/16 09/01/16 07:00 15:00 23:00 07:00 15:00 23:00 Intake Total 236 ml 480 ml 922 ml Output Total 2600 ml Balance -2600 ml 236 ml 480 ml 922 ml Intake Oral 236 ml 480 ml 922 ml Output Urine Total 2600 ml Bladder Scan Volume Amount # Voids 2 2 1 1 # Bowel Movements 1 1 Result Diagram: 08/31/16 0807 08/31/16 [address] Angiography 08/29/16 0000 Signed Impressions: Service Date/Time: August 14:48 - CONCLUSION: 1. Suboptimal opacification of the pulmonary arteries but no central pulmonary emboli. 2. Cardiomegaly with enlarged left atrium and dilated right heart. 3. Minimal bibasilar densities. Gibson Lofton MD Chest X-Ray 08/28/161943 Signed Impressions: Service Date/Time: Sunday, August 28, 2016 19:44 - CONCLUSION: Moderate enlargement cardiac silhouette. No change.. Gibson Lofton MD Objective Remarks GENERAL: Well-nourished, well-developed elderly female patient in NAD. SKIN: Warm and dry. No rash. HEAD: Normocephalic. Atraumatic. EYES: Pupils equal and round. No scleral icterus. No injection or drainage. ENT: No nasal bleeding or discharge. Mucous membranes pink and moist. NECK: Supple. Trachea midline. CARDIOVASCULAR: Regular rate and rhythm. S1, S2 noted. No murmur appreciated. RESPIRATORY: No accessory muscle use. Diffuse expiratory wheezing. Breath sounds decreased bilaterally. GASTROINTESTINAL: Abdomen soft, non-tender, nondistended. Normoactive bowel sounds x4. MUSCULOSKELETAL: No obvious deformities. Extremities without clubbing, cyanosis , or edema. NEUROLOGICAL: Awake and alert. No obvious cranial nerve deficits. Motor grossly within normal limits. Normal speech. PSYCHIATRIC: Appropriate mood and affect; insight and judgment normal. Medications and IVs Current Medications Medications (Trade) Dose Ordered Sig/Audrey Route Start Time Stop Time Status Last Admin (NS Flush) 2 ml UNSCH PRN FLUSH 08/28/16 22:00 (NS Flush) 2 ml BID FLUSH 08/29/16 09:00 08/31/16 08:34 (Narcan Inj) 0.4 mg UNSCH PRN IV 08/28/16 22:00 (Catapres) 0.1 mg BID PO 08/29/16 09:00 08/31/16 22:13 (Xarelto) 20 mg DAILY PO 08/29/16 09:00 09/01/16 09:51 Diltiazem HCl 180 mg 180 mg DAILY PO 08/29/16 09:00 09/01/16 09:51 (Levaquin 750 Mg Premix Inj) 150 ml @ 100 mls/hr Q24H IV 08/29/16 12:00 08/31/16 12:13 (Lasix) 40 mg DAILY PO 08/30/16 09:00 09/01/16 09:51 (KCl) 20 meq DAILY PO 08/30/16 20:30 09/01/16 09:51 (Xanax) 0.5 mg Q8H PRN PO 08/30/16 20:30 08/30/16 23:14 (Deltasone) 50 mg DAILY PO 09/01/16 00:00 09/01/16 09:51 Urinary Catheter: No Vascular Central Line Catheter: No A/P Problem List: (1) Shortness of breath ICD Code: R06.02 Status: Acute (2) COPD with acute exacerbation ICD Code: J44.1 Status: Acute (3) Atrial fibrillation with RVR ICD Code: I48.91 Status: Acute (4) Acute on chronic diastolic (congestive) heart failure ICD Code: I50.33 Status: Chronic (5) Lower extremity edema ICD Code: R60.0 Status: Chronic (6) Generalized weakness ICD Code: R53.1 Status: Chronic (7) HTN (hypertension) ICD Code: I10 Status: Chronic (8) NOAH (obstructive sleep apnea) ICD Code: G47.33 Status: Chronic (9) Morbid obesity ICD Code: E66.01 Status: Chronic (10) Hyperglycemia ICD Code: R73.9 Status: Acute Plan: Likely steroid induced. Check hemoglobin A1C. Will place on SSI with insulin Novolog and accuchecks. Assessment and Plan (1) Shortness of breath Plan: Suspect multifactorial due to pneumonia and COPD exacerbation and acute to typical exacerbation. Chest x-ray images reviewed, showed moderate enlargement of cardiac silhouette, otherwise clear. CTA shows some optimal opacification of the pulmonary arteries but no central pulmonary emboli. Cardiomegaly with enlarged left atrium and dilated right heart. Minimal bibasilar densities. Dyspnea seems to be more pulmonary in origin. (2) COPD with acute exacerbation Plan: Former smoker however patient denies from a diagnosis of COPD. Patient still with persistent wheezing on exam. The patient states that she follows up with pulmonology - Dr. Ballard which I will consult. We'll start incentive spirometer. The patient still has significant wheezing. I will discontinue the oral prednisone and so the patient IV Solumedrol. 2/ Wheezing improving - Will taper dose of IV Solumedrol to 40 mg IV q 12 hrs. Continue IV levaquin. Continue with supplemental O2 to keep oxygen saturation more than 92%. Continue incentive spirometry. 2/5 check laboratory home walk test. Switch IV steroids and antibiotics to oral. Incentive spirometry. COPD much improved. (3) Atrial fibrillation with RVR Plan: Laboratory control. Continue Cardizem and Xarelto. (4) Acute on chronic diastolic (congestive) heart failure Plan: Bilateral extremity edema improving with Lasix. I will start potassium which the patient takes concurrently with Lasix at home. Go-cart addendum showed normal systolic function with an EF of 50-55%, trace AR , trace MR. Appreciate emergency department consultation recommendations. (5) Lower extremity edema Plan: Improving. Continue Lasix. (6) Generalized weakness Plan: PT evaluation appreciated. The patient will need home with home health PT. (7) HTN (hypertension) Plan: Seems to be stable. Continue Cardizem. Continue to monitor vital signs. (8) NOHA (obstructive sleep apnea) Plan: Continue with CPAP at night. (9) Morbid obesity Plan: Patient with BMI of 47. Patient counseled on weight loss. Heart healthy diet. DVT prophylaxis: Patient on Xarelto GI prophylaxis,Continue PPI Discharge Planning Pending walk test. Poss dc in am. Problem Qualifiers (1) Lower extremity edema: Qualified Code: R60.0 - Bilateral edema of lower extremity (2) HTN (hypertension): Qualified Code: I10 - Essential hypertension Jesus Hicks MD Sep 01, 2016 16:40
[2016-09-01] MEDS ORDERED: DEXTROSE 50% IN WATER 50 ML VIAL(D50) IV PUSH PRN (17:00)
[2016-09-01] MEDS ORDERED: LEVOFLOXACIN 750 MG PREMIX INJ 150 ML IV SCH (17:00)
[2016-09-01] MEDS ORDERED: GLUCAGON 1 MG/ML VIAL OTHER PRN (17:00)
[2016-09-01] MEDS: LEVOFLOXACIN 750 MG TAB PO SCH (17:42)
[2016-09-01] MEDS: INSULIN ASPART SUPPLEMENTAL SCALE SQ SCH (20:49)
[2016-09-02] VITALS (9 sets, daily range): BP systolic 122–143; BP diastolic 70–85; PULSE 69–104; RESP 16–20; TEMP 95.7–97.8; O2SAT 95–99
[2016-09-02] MEDS: INSULIN ASPART SUPPLEMENTAL SCALE SQ SCH ×4 (06:20→20:47)
[2016-09-02] MEDS: RESP: ALBUTEROL 2.5 MG/IPRATROPIUM 0.5 MG NEB (SCH) NEB (07:42)
[2016-09-02] MEDS ORDERED: PULM180I INH (08:12)
[2016-09-02] MEDS ORDERED: ALPR.5 PO (08:12)
[2016-09-02] MEDS ORDERED: PRED10PA PO (08:12)
[2016-09-02] MEDS ORDERED: IPRA17I INH (08:13)
--- NOTE | 2016-09-02 08:14 | HHI.DS ---
Discharge Summary Admission Date Aug 29, 2016 at 16:25 Discharge Date: Sep 03, 2016 Admitting Diagnosis CHF, exertional dyspnea, wheezing (1) Shortness of breath ICD Code: R06.02 Diagnosis: Principal (2) COPD with acute exacerbation ICD Code: J44.1 Diagnosis: Principal (3) Atrial fibrillation with RVR ICD Code: I48.91 Diagnosis: Secondary (4) Acute on chronic diastolic (congestive) heart failure ICD Code: I50.33 Diagnosis: Secondary (5) Lower extremity edema ICD Code: R60.0 Diagnosis: Secondary (6) Generalized weakness ICD Code: R53.1 (7) HTN (hypertension) ICD Code: I10 (8) NOAH (obstructive sleep apnea) ICD Code: G47.33 (9) Morbid obesity ICD Code: E66.01 (10) Hyperglycemia ICD Code: R73.9 Procedures none Brief History - From Admission History from patient, ER physician communication, and review of medical records. Patient reported that she came to the hospital because she has been short of breath. This happens mainly on exertion. He states that this has been going on since . She states that she was initially treated for pneumonitis/bronchitis with antibiotics which includes azithromycin. She reports she actually had 2 rounds of these treatments without much improvement. She denies any nausea/vomiting/diarrhea/urinary burning or pain on urination. Denies any hematemesis/hematochezia/melena/hematuria. Denies fever or cough. She does report however that she felt as though there was blood coming out of her throat because she felt she smelled something. However never actually saw any blood. Patient reports of history of CHF. She states that she did have angiogram a few years ago for this. It was clean coronary arteries. Also reports of history of atrial fibrillation. On anticoagulation. Never had ablation. She sees Dr. Willy MCGRAW In the emergency room, patient was given Lasix 60 mg IV. She had diuresed a total of 3 L after this. Patient also reports that she drinks quite a bit of water. She states that she drinks 10 bottles of water and she shows me a bottle size. This was 500 cc in each bottle. She denies any history of diabetes. CBC/BMP: 08/31/16 0807 08/31/16 0807 Significant Findings Laboratory Tests Test 08/31/16 09/01/16 08:07 13:44 Neutrophils (%) (Auto) 83.9 % (16.0-70.0) Estimat Glomerular Filtration 74 ML/MIN (>89) Rate Random Glucose 162 MG/DL (74-106) Aspartate Amino Transf 13 U/L (15-37) (AST/SGOT) Albumin 3.1 GM/DL (3.4-5.0) Blood Gas HCO3 27 mmol/L (22-26) Blood Gas Base Excess 3.2 mmol/L (-2-2) Arterial Blood pH 7.46 (7.380-7.420) Imaging Last Impressions CT Angiography 08/29/16 0000 Signed Impressions: Service Date/Time: August 14:48 - CONCLUSION: 1. Suboptimal opacification of the pulmonary arteries but no central pulmonary emboli. 2. Cardiomegaly with enlarged left atrium and dilated right heart. 3. Minimal bibasilar densities. Gibson Lofton MD Chest X-Ray 08/28/16 194 Signed Impressions: Service Date/Time: Sunday, August 28, 2016 19:44 - CONCLUSION: Moderate enlargement cardiac silhouette. No change.. Gibson Lofton MD PE at Discharge GENERAL: Well-nourished, well-developed elderly female patient in [facility]. SKIN: Warm and dry. No rash. HEAD: Normocephalic. Atraumatic. EYES: Pupils equal and round. No scleral icterus. No injection or drainage. ENT: No nasal bleeding or discharge. Mucous membranes pink and moist. NECK: Supple. Trachea midline. CARDIOVASCULAR: Regular rate and rhythm. S1, S2 noted. No murmur appreciated. RESPIRATORY: No accessory muscle use. Diffuse expiratory wheezing. Breath sounds decreased bilaterally. GASTROINTESTINAL: Abdomen soft, non-tender, nondistended. Normoactive bowel sounds x4. MUSCULOSKELETAL: No obvious deformities. Extremities without clubbing, cyanosis , or edema. NEUROLOGICAL: Awake and alert. No obvious cranial nerve deficits. Motor grossly within normal limits. Normal speech. PSYCHIATRIC: Appropriate mood and affect; insight and judgment normal. Pt update on day of discharge Feels much better. No wheezing. No sob. No cough. Feels comfortable to go home today. Hospital Course (1) Shortness of breath Plan: Suspect multifactorial due to pneumonia and COPD exacerbation and acute to typical exacerbation. Chest x-ray images reviewed, showed moderate enlargement of cardiac silhouette, otherwise clear. CTA shows some optimal opacification of the pulmonary arteries but no central pulmonary emboli. Cardiomegaly with enlarged left atrium and dilated right heart. Minimal bibasilar densities. Dyspnea seems to be more pulmonary in origin. (2) COPD with acute exacerbation Plan: Former smoker however patient denies from a diagnosis of COPD. Patient still with persistent wheezing on exam. The patient states that she follows up with pulmonology - Dr. Ballard which I will consult. We'll start incentive spirometer. The patient still has significant wheezing. I will discontinue the oral prednisone and so the patient IV Solumedrol. 08/31 Wheezing improving - Will taper dose of IV Solumedrol to 40 mg IV q 12 hrs. Continue IV levaquin. Continue with supplemental O2 to keep oxygen saturation more than 92%. Continue incentive spirometry. 09/01 check laboratory home walk test. Switch IV steroids and antibiotics to oral. Incentive spirometry. COPD much improved. (3) Atrial fibrillation with RVR Plan: Laboratory control. Continue Cardizem and Xarelto. (4) Acute on chronic diastolic (congestive) heart failure Plan: Bilateral extremity edema improving with Lasix. I will start potassium which the patient takes concurrently with Lasix at home. Go-cart addendum showed normal systolic function with an EF of 50-55%, trace AR , trace MR. Appreciate tube fitter consultation recommendations. (5) Lower extremity edema Plan: Improving. Continue Lasix. (6) Generalized weakness Plan: PT evaluation appreciated. The patient will need home with home health PT. (7) HTN (hypertension) Plan: Seems to be stable. Continue Cardizem. Continue to monitor vital signs. (8) NOAH (obstructive sleep apnea) Plan: Continue with CPAP at night. (9) Morbid obesity Plan: Patient with BMI of 47. Patient counseled on weight loss. Heart healthy diet. DVT prophylaxis: Patient on Xarelto GI prophylaxis,Continue PPI Discharge Planning Walking O2 test repeat no need for O2 at home. Patient improved. DC home with home health, to follow up as OP with PCP and consultants. Pt Condition on Discharge: Fair Discharge Disposition: Disch w/ Home Health Serv Discharge Time: > 30 minutes Discharge Instructions DIET: Follow Instructions for: Heart Healthy Diet Activities you can perform: Regular-No Restrictions Follow up Referrals: PCP Follow-up - 3-5 Days Pulmonology - 2 Weeks New Medications: Budesonide Powder Inh (Pulmicort Flexhaler) 180 Mcg/Act Inhp 180 MCG INH Q12HR Asthma Management #1 Ref 0 INHALER Ipratropium HFA 12.9 GM Inh (Atrovent HFA 12.9 GM Inh) 17 Mcg/Act Aer 2 PUFF INH TID Shortness of Breath #1 Ref 0 INHALER Prednisone (21) 10 mg tab Dose Pack (Prednisone (21) 10 mg tab Dose Pack) 10 Mg Pack 10 MG PO DIRECTED Inflammation #1 Ref 0 DSPK Alprazolam (Xanax) 0.5 Mg Tab 0.5 MG PO Q8H PRN ANXIETY #10 TAB Levofloxacin (Levaquin) 750 Mg Tab 750 MG PO DAILY bronchitis #3 TAB Continued Medications: Albuterol Neb (Albuterol Neb) 2.5 Mg/3 Ml Neb 2.5 MG NEB Q4HR NEB PRN SHORTNESS OF BREATH #60 Ref 0 NEBULE Clonidine (Clonidine) 0.1 Mg Tab 0.1 MG PO BID Blood Pressure Management #60 Ref 0 TAB Diltiazem (Cardizem) 120 Mg Tab 180 MG PO DAILY Angina #120 Ref 0 TAB Furosemide (Furosemide) 40 Mg Tab 40 MG PO BID #60 Ref 0 TAB Rivaroxaban (Xarelto) 20 Mg Tab 20 MG PO DAILY Blood Clot Prevention Ref 0 TAB Nanda Middleton MD Sep 02, 2016 08:14
--- NOTE | 2016-09-02 08:14 | HHI.FF ---
Face to Face Verification Diagnosis: (1) A-fib (2) Generalized weakness (3) COPD with acute exacerbation (4) Morbid obesity (5) HTN (hypertension) (6) NOAH (obstructive sleep apnea) (7) Acute on chronic diastolic (congestive) heart failure Physical Therapy Order: Evaluate and Treat Home Health Nursing Order: Medical education Signs/symptoms of disease process Medication education-adverse effect Nursing assessment with vital signs I have seen patient Judie Jenkins on 09/02/16. My clinical findings support the need for the requested home health care services because: Ltd mobility - disease progression Patient has SOB I certify that my clinical findings support that this patient is homebound because: Post-op weakness Hx COPD- exertion dyspnea/weakness Nanda Middleton MD Sep 02, 2016 08:14
[2016-09-02] MEDS ORDERED: LEVA750T PO (08:19)
[2016-09-02] MEDS: SODIUM CHLORIDE 0.9% FLUSH 5 ML FLUSH FLUSH SCH ×2 (09:00→20:54)
[2016-09-02] MEDS: predniSONE 50 MG TAB PO SCH (09:59)
[2016-09-02] MEDS: FUROSEMIDE 40 MG TAB PO SCH (09:59)
[2016-09-02] MEDS: DILTIAZEM-CD 180 MG CAP ER PO SCH (09:59)
[2016-09-02] MEDS: POTASSIUM CHLORIDE 20 MEQ CONTROLLED RELEASE TAB PO SCH (09:59)
[2016-09-02] MEDS: LEVOFLOXACIN 750 MG TAB PO SCH (09:59)
[2016-09-02] MEDS: RIVAROXABAN 20 MG TAB PO SCH (10:00)
--- NOTE | 2016-09-02 12:47 | HHI.PR ---
Subjective Remarks Patient says she is feeling short of breath, and she still wheezing. Says she was not able to do the walking test because of feeling tired and not able to walk to finish the test. Says she doesn't feel comfortable to go home today. No cough at this time. However she still having a cough productive at night, frothy pink stained or black/dark color at times. Objective Vitals Vital Signs Date Time Temp Pulse Resp B/P Pulse Ox O2 Delivery O2 Flow Rate FiO2 09/02/16 08:00 96.1 78 16 128/77 95 09/02/16 07:42 98 09/02/16 04:00 96.6 88 20 131/72 96 09/02/16 00:00 97.6 95 20 132/77 99 09/01/16 20:00 96.8 92 20 153/66 94 09/01/16 20:00 76 09/01/16 16:00 97.8 93 20 132/56 98 I/O 09/01/16 09/01/16 09/01/16 09/02/16 09/02/16 09/02/16 07:00 15:00 23:00 07:00 15:00 23:00 Intake Total 1162 ml 120 ml Balance 1162 ml 120 ml Intake Oral 1162 ml 120 ml # Voids 1 1 1 1 # Bowel Movements 0 1 Result Diagram: 08/31/16 0807 08/31/16 [address] Angiography 08/29/16 0000 Signed Impressions: Service Date/Time: August 14:48 - CONCLUSION: 1. Suboptimal opacification of the pulmonary arteries but no central pulmonary emboli. 2. Cardiomegaly with enlarged left atrium and dilated right heart. 3. Minimal bibasilar densities. Gibson Lofton MD Chest X-Ray 08/28/161943 Signed Impressions: Service Date/Time: Sunday, August 28, 2016 19:44 - CONCLUSION: Moderate enlargement cardiac silhouette. No change.. Gibson Lofton MD Objective Remarks GENERAL: Well-nourished, well-developed elderly female patient in [facility]. SKIN: Warm and dry. No rash. HEAD: Normocephalic. Atraumatic. EYES: Pupils equal and round. No scleral icterus. No injection or drainage. ENT: No nasal bleeding or discharge. Mucous membranes pink and moist. NECK: Supple. Trachea midline. CARDIOVASCULAR: Regular rate and rhythm. S1, S2 noted. No murmur appreciated. RESPIRATORY: No accessory muscle use. Diffuse expiratory wheezing. Breath sounds decreased bilaterally. GASTROINTESTINAL: Abdomen soft, non-tender, nondistended. Normoactive bowel sounds x4. MUSCULOSKELETAL: No obvious deformities. Extremities without clubbing, cyanosis , or edema. NEUROLOGICAL: Awake and alert. No obvious cranial nerve deficits. Motor grossly within normal limits. Normal speech. PSYCHIATRIC: Appropriate mood and affect; insight and judgment normal. A/P Problem List: (1) Shortness of breath ICD Code: R06.02 Status: Acute (2) COPD with acute exacerbation ICD Code: J44.1 Status: Acute (3) Atrial fibrillation with RVR ICD Code: I48.91 Status: Acute (4) Acute on chronic diastolic (congestive) heart failure ICD Code: I50.33 Status: Chronic (5) Lower extremity edema ICD Code: R60.0 Status: Chronic (6) Generalized weakness ICD Code: R53.1 Status: Chronic (7) HTN (hypertension) ICD Code: I10 Status: Chronic (8) NOAH (obstructive sleep apnea) ICD Code: G47.33 Status: Chronic (9) Morbid obesity ICD Code: E66.01 Status: Chronic (10) Hyperglycemia ICD Code: R73.9 Status: Acute Assessment and Plan (1) Shortness of breath Plan: Suspect multifactorial due to pneumonia and COPD exacerbation and acute to typical exacerbation. Chest x-ray images reviewed, showed moderate enlargement of cardiac silhouette, otherwise clear. CTA shows some optimal opacification of the pulmonary arteries but no central pulmonary emboli. Cardiomegaly with enlarged left atrium and dilated right heart. Minimal bibasilar densities. Dyspnea seems to be more pulmonary in origin. (2) COPD with acute exacerbation Plan: Former smoker however patient denies from a diagnosis of COPD. Patient still with persistent wheezing on exam. The patient states that she follows up with pulmonology - Dr. Ballard which I will consult. We'll start incentive spirometer. The patient still has significant wheezing. I will discontinue the oral prednisone and so the patient IV Solumedrol. 2/4 Wheezing improving - Will taper dose of IV Solumedrol to 40 mg IV q 12 hrs. Continue IV levaquin. Continue with supplemental O2 to keep oxygen saturation more than 92%. Continue incentive spirometry. 2/5 check laboratory home walk test. Switch IV steroids and antibiotics to oral. Incentive spirometry. COPD much improved. (3) Atrial fibrillation with RVR Plan: Laboratory control. Continue Cardizem and Xarelto. (4) Acute on chronic diastolic (congestive) heart failure Plan: Bilateral extremity edema improving with Lasix. I will start potassium which the patient takes concurrently with Lasix at home. Go-cart addendum showed normal systolic function with an EF of 50-55%, trace AR , trace MR. Appreciate wire charger consultation recommendations. (5) Lower extremity edema Plan: Improving. Continue Lasix. (6) Generalized weakness Plan: PT evaluation appreciated. The patient will need home with home health PT. (7) HTN (hypertension) Plan: Seems to be stable. Continue Cardizem. Continue to monitor vital signs. (8) NOAH (obstructive sleep apnea) Plan: Continue with CPAP at night. (9) Morbid obesity Plan: Patient with BMI of 47. Patient counseled on weight loss. Heart healthy diet. DVT prophylaxis: Patient on Xarelto GI prophylaxis,Continue PPI Discharge Planning Will repeat walk test later today or in AM. Poss dc in am. Problem Qualifiers (1) Lower extremity edema: Qualified Code: R60.0 - Bilateral edema of lower extremity (2) HTN (hypertension): Qualified Code: I10 - Essential hypertension Nanda Middleton MD Sep 02, 2016 12:47
[2016-09-02] MEDS: cloNIDine HCL 0.1 MG TAB PO SCH (13:04)
[2016-09-02 13:42] LABS: HEMOGLOBIN A1a 1.1 %; HEMOGLOBIN Ao 83.6 %; HEMOGLOBIN LA1C 2.1 %; HEMOGLOBIN P3 4.4 %
--- NOTE | 2016-09-02 19:33 | HHI.PR ---
Subjective Remarks 70 YOAA female with NOAH, SOB Feels much better Breathing improved Up in chair Weaned to RA ABG normal oxygenation. Objective Vital Signs Vital Signs Date Time Temp Pulse Resp B/P Pulse Ox O2 Delivery O2 Flow Rate FiO2 09/02/16 14:00 97.8 83 20 122/85 96 09/02/16 12:00 95.7 99 19 140/70 97 09/02/16 08:00 96.1 78 16 128/77 95 09/02/16 07:42 98 09/02/16 04:00 96.6 88 20 131/72 96 09/02/16 00:00 97.6 95 20 132/77 99 09/01/16 20:00 96.8 92 20 153/66 94 09/01/16 20:00 76 I/O 09/01/16 09/01/16 09/01/16 09/02/16 09/02/16 09/02/16 07:00 15:00 23:00 07:00 15:00 23:00 Intake Total 1162 ml 120 ml Balance 1162 ml 120 ml Intake Oral 1162 ml 120 ml # Voids 1 1 1 1 # Bowel Movements 0 1 Result Diagram: 08/31/16 0807 08/31/16 0807 Objective Remarks GENERAL: Morbidly obese female,NAD SKIN: Warm and dry. HEAD: Normocephalic. EYES: No scleral icterus. No injection or drainage. NECK: Supple, trachea midline. No JVD or lymphadenopathy. CARDIOVASCULAR: Regular rate and rhythm without murmurs, gallops, or rubs. RESPIRATORY: Breath sounds equal bilaterally. No accessory muscle use. GASTROINTESTINAL: Abdomen soft, non-tender, nondistended. MUSCULOSKELETAL: No cyanosis, or edema. BACK: Nontender without obvious deformity. No CVA tenderness. A/P Assessment and Plan COPD NOAH Morbid obesity AF HTN PLAN: Aerosol nebs Pred 50 mg daily and wean Stable on RA monitor BS Esvin Gilliam MD Sep 02, 2016 19:33
[2016-09-03 00:45] VITALS: BP 120/70; PULSE 81; RESP 17; TEMP 98.2; O2SAT 98
[2016-09-03] MEDS: cloNIDine HCL 0.1 MG TAB PO SCH (00:56)
[2016-09-03] MEDS: INSULIN ASPART SUPPLEMENTAL SCALE SQ SCH (06:03)
[2016-09-03 06:12] VITALS: BP 127/63; PULSE 80; RESP 17; TEMP 98; O2SAT 99
[2016-09-03 08:00] VITALS: BP 112/64; PULSE 75; RESP 18; TEMP 97.7; O2SAT 98
[2016-09-03] MEDS: SODIUM CHLORIDE 0.9% FLUSH 5 ML FLUSH FLUSH SCH (09:00)
[2016-09-03] MEDS: RESP: ALBUTEROL 2.5 MG/IPRATROPIUM 0.5 MG NEB (PRN) NEB (09:24)
[2016-09-03 09:28] VITALS: O2SAT 97
[2016-09-03] MEDS: DILTIAZEM-CD 180 MG CAP ER PO SCH (09:44)
[2016-09-03] MEDS: LEVOFLOXACIN 750 MG TAB PO SCH (09:44)
[2016-09-03] MEDS: FUROSEMIDE 40 MG TAB PO SCH (09:44)
[2016-09-03] MEDS: RIVAROXABAN 20 MG TAB PO SCH (09:44)
[2016-09-03] MEDS: POTASSIUM CHLORIDE 20 MEQ CONTROLLED RELEASE TAB PO SCH (09:44)
[2016-09-03] MEDS: predniSONE 50 MG TAB PO SCH (09:44)
[2016-09-03 12:15] VITALS: BP 106/52; PULSE 89; RESP 17; TEMP 97.7; O2SAT 96
== END 2016-09-03 16:48 | disposition home health service (06) | DRG 190 ==
LOC: NEPC 18:59 → NEDA 22:00 → NEDH 08-29 06:45 → NEPFCDU 08-29 15:28 → OBSVTOIN 08-29 16:25 → N05A 08-29 21:22
PROVIDERS: ADMIT Hospitalist; ATTEND Hospitalist
DX: J44.0 Chronic obstructive pulmonary disease with (acute) lower respiratory infection (principal); J18.9 Pneumonia, unspecified organism; I50.33 Acute on chronic diastolic (congestive) heart failure; J44.1 Chronic obstructive pulmonary disease with (acute) exacerbation; I48.91 Unspecified atrial fibrillation; E66.01 Morbid (severe) obesity due to excess calories; Z68.31 Body mass index [BMI] 31.0-31.9, adult; J45.909 Unspecified asthma, uncomplicated; G47.33 Obstructive sleep apnea (adult) (pediatric); R60.0 Localized edema; I10 Essential (primary) hypertension; R73.9 Hyperglycemia, unspecified; E78.5 Hyperlipidemia, unspecified; Z79.02 Long term (current) use of antithrombotics/antiplatelets; Z87.891 Personal history of nicotine dependence; Z96.653 Presence of artificial knee joint, bilateral
CPT/HCPCS: 36600; 71010; 71275; 76937; 80048; 80053; 80074; 81001; 82550; 82552; 82805; 82948; 83036; 83735; 83880; 84100; 84443; 84484; 85025; 85610; 87070; 87205; 93005; 93306; 94150; 94620; 94640; 94664; 96374; 96375; G0378; G8987-GP; G8988-GP; J1815; J1940; J1956; J2920; J2930; J7512; Q9967

== ENCOUNTER 2016-12-24 08:39 | Emergency (ER) | payer MEDICARE, OTHER ==
[~2016-12-24] VITALS: Ht 170.2 cm; Wt 136.0 kg
[~2016-12-24 08:39] MED LIST changes: +ALPR.5 PO; -AZIT250T3 PO; +IPRA17I INH; +LEVA750T PO; +PRED10PA PO; -PRED20 PO; +PULM180I INH
[2016-12-24 08:42] VITALS: BP 182/100; PULSE 88; RESP 15; TEMP 97.8; O2SAT 97
--- NOTE | 2016-12-24 09:22 | PD ---
HPI Chief Complaint: Musculoskeletal Complaint Time Seen by Provider: 08:55 Travel History International Travel<30 days: No Contact w/Intl Traveler<30days: No Traveled to known affect area: No History of Present Illness HPI 71-year-old female presents with right sided flank pain over the past 3 weeks. She states over the past day or so she's developed chills and nausea associated so she elected to come in. She states she was recently in the hospital with pneumonia but has no signs of cough or congestion or other concurrent complaints. Quality of pain is sharp. Severity is moderate. Pain is worse with movement. She denies other modifying factors. PFSH Past Medical History Hx Anticoagulant Therapy: Yes (Xarelto) Arthritis: Yes (BILAT KNEES, BACK, BILAT FEET) Asthma: No Atrial Fibrillation: Yes Autoimmune Disease: No Blood Disorders: No Anxiety: No (NORMAL STRESSES IN LIFE, OUT LIVED CHILD AND ) Depression: No (NORMAL STRESSED IN LIFE, OUT LIVED CHILD AND ) Heart Rhythm Problems: Yes Cancer: No Cardiovascular Problems: Yes (CHF) High Cholesterol: Yes (ON STATINS) Chemotherapy: No Chest Pain: No Congestive Heart Failure: Yes (7 YEARS AGO, APPORX) COPD: No Cerebrovascular Accident: No Diabetes: No Diminished Hearing: No Endocrine: No Gastrointestinal Disorders: Yes GERD: Yes Glaucoma: No Genitourinary: No Headaches: No Hepatitis: No Hiatal Hernia: Yes Hypertension: Yes Immune Disorder: No Implanted Vascular Access Dvce: Yes Kidney Stones: No Musculoskeletal: Yes Neurologic: No Psychiatric: No Reproductive: No Respiratory: Yes (COPD) Immunizations Current: Yes Migraines: No Myocardial Infarction: No Radiation Therapy: No Renal Failure: No Seizures: No Sickle Cell Disease: No Sleep Apnea: Yes Thyroid Disease: No Ulcer: No Tetanus Vaccination: > 5 Years Influenza Vaccination: No ?: Not Past Surgical History Abdominal Surgery: Yes (appendectomy) AICD: No Appendectomy: Yes Arteriovenous Shunt: No Body Medical Devices: PIERCED EARS Cardiac Surgery: No Cholecystectomy: No Ear Surgery: No Endocrine Surgery: No Eye Surgery: Yes (PARITAL FACE LIFT YES) Genitourinary Surgery: No Gynecologic Surgery: Yes (breast reduction) Insulin Pump: No Joint Replacement: Yes (left knee replaced) Oral Surgery: No Pacemaker: No Thoracic Surgery: Yes (BILAT BREAST REDUCTION) Other Surgery: Yes (BREAST REDUCTION AND FACE LIFT) Social History Alcohol Use: No Tobacco Use: No Substance Use: No Allergies-Medications (Allergen,Severity, Reaction): Coded Allergies: Sulfa (Verified Allergy, Mild, skin peels, 08/28/16) Reported Meds & Prescriptions Reported Meds & Active Scripts Active Atrovent HFA 12.9 GM Inh (Ipratropium Rumsey) 17 Mcg/Act Aer 2 Puff INH TID Pulmicort Flexhaler (Budesonide Powder Inh) 180 Mcg/Act Inhp 180 Mcg INH Q12HR Xanax (Alprazolam) 0.5 Mg Tab 0.5 Mg PO Q8H PRN Reported Diltiazem ER 24 HR (Diltiazem HCl) 180 Mg Caper 180 Mg PO DAILY Furosemide 40 Mg Tab 40 Mg PO BID Clonidine (Clonidine HCl) 0.1 Mg Tab 0.1 Mg PO BID Albuterol Neb (Albuterol Sulfate) 2.5 Mg/3 Ml Neb 2.5 Mg NEB Q4HR NEB PRN Xarelto (Rivaroxaban) 20 Mg Tab 20 Mg PO DAILY Review of Systems Except as stated in HPI: all other systems reviewed are Neg Physical Exam Narrative GENERAL: Well-nourished, well-developed patient. Well-appearing SKIN: Warm and dry. HEAD: Normocephalic and atraumatic. EYES: No injection or drainage. ENT: No nasal drainage noted. NECK: Supple, trachea midline. CARDIOVASCULAR: irregular rate and rhythm RESPIRATORY: Breath sounds equal bilaterally. No accessory muscle use. GASTROINTESTINAL: Abdomen soft, ttp in ruq, nondistended. EXTREMITIES: No edema. NEUROLOGICAL: Awake and alert. Moves all extremities. Normal speech. Data Data Last Documented VS Vital Signs Date Time Temp Pulse Resp B/P Pulse Ox O2 Delivery O2 Flow Rate FiO2 12/24/16 10:23 90 20 144/89 98 Room Air 12/24/16 08:42 97.8 Orders Complete Blood Count With Diff (12/24/16 09:11) Comprehensive Metabolic Panel (12/24/16 09:11) Urinalysis - C+S If Indicated (12/24/16 09:11) Lipase (12/24/16 09:11) Ct Abd/Pel W/O Iv Contrast (12/24/16 ) Iv Access Insert/Monitor (12/24/16 09:11) Oximetry (12/24/16 09:11) Ondansetron Inj (Zofran Inj) (12/24/16 09:30) Ketorolac Inj (Toradol Inj) (12/24/16 09:30) Urine Culture (12/24/16 09:15) Ceftriaxone Inj (Rocephin Inj) (12/24/16 10:00) Labs Laboratory Tests Test 12/24/16 09:15 White Blood Count 7.4 TH/MM3 Red Blood Count 5.02 MIL/MM3 Hemoglobin 14.5 GM/DL Hematocrit 43.3 % Mean Corpuscular Volume 86.4 FL Mean Corpuscular Hemoglobin 28.9 PG Mean Corpuscular Hemoglobin 33.5 % Concent Red Cell Distribution Width 15.2 % Platelet Count 151 TH/MM3 Mean Platelet Volume 9.5 FL Neutrophils (%) (Auto) 66.7 % Lymphocytes (%) (Auto) 24.2 % Monocytes (%) (Auto) 6.4 % Eosinophils (%) (Auto) 2.3 % Basophils (%) (Auto) 0.4 % Neutrophils # (Auto) 4.9 TH/MM3 Lymphocytes # (Auto) 1.8 TH/MM3 Monocytes # (Auto) 0.5 TH/MM3 Eosinophils # (Auto) 0.2 TH/MM3 Basophils # (Auto) 0.0 TH/MM3 CBC Comment DIFF FINAL Differential Comment Urine Color YELLOW Urine Turbidity CLOUDY Urine pH 6.5 Urine Specific [place] 1.020 Urine Protein 30 mg/dL Urine Glucose (UA) NEG mg/dL Urine Ketones NEG mg/dL Urine Occult Blood TRACE Urine Nitrite NEG Urine Bilirubin NEG Urine Urobilinogen LESS THAN 2.0 MG/DL Urine Leukocyte Esterase LARGE Urine RBC 4 /hpf Urine WBC 35 /hpf Urine Squamous Epithelial 41 /hpf Cells Urine Bacteria MANY /hpf Urine Hyaline Casts 2 /lpf Microscopic Urinalysis Comment CULTURE INDICATED Sodium Level 140 MEQ/L Potassium Level 4.9 MEQ/L Chloride Level 104 MEQ/L Carbon Dioxide Level 24.8 MEQ/L Anion Gap 11 MEQ/L Blood Urea Nitrogen 17 MG/DL Creatinine 1.02 MG/DL Estimat Glomerular Filtration 64 ML/MIN Rate Random Glucose 108 MG/DL Calcium Level 10.0 MG/DL Total Bilirubin 0.9 MG/DL Aspartate Amino Transf 43 U/L (AST/SGOT) Alanine Aminotransferase 22 U/L (ALT/SGPT) Alkaline Phosphatase 67 U/L Total Protein 8.9 GM/DL Albumin 3.7 GM/DL Lipase 201 U/L [facility] Medical Decision Making Medical Screen Exam Complete: Yes Emergency Medical Condition: Yes Medical Record Reviewed: Yes (past history confirmed) Interpretation(s) CBC & BMP Diagram 12/24/16 09:15 Last 24 hours Impressions Abdomen/Pelvis CT 12/24/16 0000 Signed Impressions: Service Date/Time: Saturday, December 24, 2016 09:57 - CONCLUSION: 1. Small hiatal hernia at the GE junction. 2. Mild cardiomegaly with coronary calcifications.. 3. Scattered diverticulosis of the descending and sigmoid colon without inflammatory changes. 4. No calcified renal stones or hydronephrosis. Chava Temple MD ua with uti Differential Diagnosis UTI, cholelithiasis, kidney stone, pancreatitis, musculoskeletal... Narrative Course Will check blood work, urinalysis, CT scan abdominal pelvis and reevaluate ED workup with UTI, patient without fever or white count here. Given Rocephin. Agrees to further management at home.Patient denies any new complaints and states that they are feeling better. Patient happy with care, all questions answered. Patient knows that follow up is incumbent on them and to return to the emergency room immediately if new or worsening symptoms develop. Patient given strict return precautions, vitals reviewed and are normal, agrees to further workup as an outpatient. Diagnosis Primary Impression: UTI (urinary tract infection) Qualified Code: N39.0 - Urinary tract infection without hematuria, site unspecified Additional Impressions: Nausea Back pain Qualified Code: M54.9 - Acute right-sided back pain, unspecified back location Patient Instructions: General Instructions Additional Instructions: return as needed, tylenol as needed, follow with primary tommorrow Med/Other Pt SpecificInfo: Prescription(s) given (keflex 500mg bid times 1 week written as ) Disposition: 01 DISCHARGE HOME Condition: Stable Evelina Ferris MD December 24, 2016 09:22
[2016-12-24] MEDS ORDERED: ONDANSETRON HCL 4 MG/2 ML VIAL IV PUSH ONE (09:30)
[2016-12-24] MEDS ORDERED: KETOROLAC TROMETHAMINE 30 MG/ML (IVP) VIAL IV PUSH ONE (09:30)
[2016-12-24 09:55] LABS: AUTOMATED NEUTROPHIL # 4.9 TH/MM3 (1.8-7.7); BACTERIA, URINE MANY /hpf; BASOPHIL % 0.4 % (0.0-2.0); BLOOD, URINE TRACE (NEG); COMMENT (UR) CULTURE INDICATED; CULTURE IF INDICATED CULTURE INDICATED; EOSINOPHIL # 0.2 TH/MM3 (0-0.4); EOSINOPHIL % 2.3 % (0.0-4.0); GLUCOSE,URINE NEG (NEG); HEMATOCRIT 43.3 % (35.0-46.0); HEMO FLAGS DIFF FINAL; HYALINE CAST, URINE 2 /lpf (RARE); KETONE, URINE NEG (NEG); LYMPH % 24.2 % (9.0-44.0); LYMPHOCYTE # 1.8 TH/MM3 (1.0-4.8); MEAN CELL VOLUME 86.4 FL (80.0-100.0); MEAN CORPUSCULAR HEMOGLOBIN 28.9 PG (27.0-34.0); MEAN CORPUSCULAR HGB CONC 33.5 % (32.0-36.0); MONO % 6.4 % (0.0-8.0); NEUT % 66.7 % (16.0-70.0); NITRITE,URINE NEG (NEG); PH, URINE 6.5 (5.0-8.5); PLATELET COUNT 151 TH/MM3 (150-450); RED BLOOD COUNT 5.02 MIL/MM3 (4.00-5.30); RED CELL DISTRIBUTION WIDTH 15.2 % (11.6-17.2); SQUAMOUS EPITHELIAL CELL URINE 41 /hpf (0-5); URINE COLOR YELLOW (YELLW/STRAW); WHITE BLOOD COUNT 7.4 TH/MM3 (4.0-11.0)
[2016-12-24] MEDS ORDERED: cefTRIAXone INJ 1,000 MG in SODIUM CHLORIDE 0.9% INJ 100 ML IV ONE (10:00)
[2016-12-24 10:12] LABS: ALKALINE PHOSPHATASE 67 U/L (45-117); ALT (GPT) 22 U/L (10-53); ANION GAP 11 MEQ/L (5-15); AST (GOT) 43 U/L (15-37); BICARBONATE 24.8 MEQ/L (21.0-32.0); BLOOD UREA NITROGEN 17 MG/DL (7-18); CHLORIDE 104 MEQ/L (98-107); GLOMERULAR FILTRATION RATE 64 ML/MIN (>89); SODIUM (NA) 140 MEQ/L (136-145); TOTAL BILIRUBIN ADULT 0.9 MG/DL (0.2-1.0)
[2016-12-24 10:13] LABS: POTASSIUM 4.9 MEQ/L (3.5-5.1)
[2016-12-24 10:23] VITALS: BP 144/89; PULSE 90; RESP 20; O2SAT 98
--- NOTE | 2016-12-24 10:29 | RADRPT ---
EXAM DATE/TIME: 12/24/2016 09:57 [facility] COMPARISON: No previous studies available for comparison. INDICATIONS : Abdomen pain for 3 weeks. ORAL CONTRAST: No oral contrast ingested. RADIATION DOSE: 28.82 CTDIvol (mGy) MEDICAL HISTORY : Cardiovascular disease. Hypertension. SURGICAL HISTORY : Appendectomy. ENCOUNTER: Initial ACUITY: 3 weeks PAIN SCALE: 5/10 LOCATION: Right flank TECHNIQUE: Volumetric scanning of the abdomen and pelvis was performed. Using automated exposure control and ad justment of the mA and/or kV according to patient size, radiation dose was kept as low as reasonably achievable to obtain optimal diagnostic quality images. FINDINGS: LOWER LUNGS: The visualized lower lungs are clear. The heart size is enlarged. Small hiatal hernia the GE junction . Coronary calcifications. LIVER: Homogeneous density without lesion. There is no dilation of the biliary tree. No calcified gallston es. SPLEEN: Normal size without lesion. PANCREAS: Within normal limits. KIDNEYS: Normal in size and shape. There is no mass, stone, or hydronephrosis. ADRENAL GLANDS: Within normal limits. VASCULAR: There is no aortic aneurysm. BOWEL/MESENTERY: The stomach, small bowel, and colon demonstrate no acute abnormality. There is no free intraperitone al air or fluid. Scattered diverticulosis of the descending and sigmoid colon without inflammatory ch anges. ABDOMINAL WALL: Within normal limits. RETROPERITONEUM: There is no lymphadenopathy. BLADDER: No wall thickening or mass. REPRODUCTIVE: Within normal limits. INGUINAL: There is no lymphadenopathy or hernia. MUSCULOSKELETAL: Within normal limits for patient age. Degenerative changes. CONCLUSION: 1. Small hiatal hernia at the GE junction. 2. Mild cardiomegaly with coronary calcifications.. 3. Scattered diverticulosis of the descending and sigmoid colon without inflammatory changes. 4. No calcified renal stones or hydronephrosis. Chava Temple MD on December 24, 2016 at 10:23 Board Certified Radiologist. This report was verified electronically.
[2016-12-24] MEDS ORDERED: IPRA17I INH (10:33)
[2016-12-24] MEDS ORDERED: DILT180C7 PO (10:33)
== END 2016-12-24 11:31 | disposition home or self-care (01) ==
LOC: NEPC 08:39
DX: N39.0 Urinary tract infection, site not specified (principal); B96.89 Other specified bacterial agents as the cause of diseases classified elsewhere; R11.0 Nausea
CPT/HCPCS: 74176; 80053; 81001; 83690; 85025; 87086; 96365; 96375; 99285; J0696; J1885

== ENCOUNTER 2017-01-18 16:55 | Inpatient (IN) | payer MEDICARE, OTHER ==
[~2017-01-18] VITALS: Ht 170.2 cm; Wt 68.1 kg
[~2017-01-18 16:55] MED LIST changes: -CARD120T4 PO; +DILT180C7 PO; -LEVA750T PO; -PRED10PA PO
[2017-01-18 16:57] VITALS: BP 179/96; PULSE 108; RESP 18; TEMP 98.2; O2SAT 98
[2017-01-18] MEDS ORDERED: SODIUM CHLORIDE 0.9% FLUSH 10 ML FLUSH IV FLUSH PRN ×2 (17:30→21:30)
[2017-01-18] MEDS ORDERED: ONDANSETRON HCL 4 MG/2 ML VIAL IVP ONE (17:30)
[2017-01-18 17:44] VITALS: BP 137/84; PULSE 90; RESP 18; O2SAT 96
[2017-01-18 18:49] LABS: HEMATOCRIT 41.2 % (35.0-46.0); MEAN CELL VOLUME 87.1 FL (80.0-100.0); MEAN CORPUSCULAR HEMOGLOBIN 28.2 PG (27.0-34.0); MEAN CORPUSCULAR HGB CONC 32.4 % (32.0-36.0); PLATELET COUNT 153 TH/MM3 (150-450); RED BLOOD COUNT 4.73 MIL/MM3 (4.00-5.30); RED CELL DISTRIBUTION WIDTH 14.8 % (11.6-17.2); WHITE BLOOD COUNT 7.1 TH/MM3 (4.0-11.0)
[2017-01-18 18:52] LABS: ALT (GPT) 20 U/L (10-53); ANION GAP 9 MEQ/L (5-15); AST (GOT) 24 U/L (15-37); BICARBONATE 25.4 MEQ/L (21.0-32.0); BLOOD UREA NITROGEN 11 MG/DL (7-18); CHLORIDE 106 MEQ/L (98-107); GLOMERULAR FILTRATION RATE 65 ML/MIN (>89); POTASSIUM 3.9 MEQ/L (3.5-5.1); SODIUM (NA) 140 MEQ/L (136-145)
[2017-01-18 18:53] LABS: HEMO FLAGS AUTO DIFF
[2017-01-18 18:54] LABS: BLOOD, URINE NEG (NEG); COMMENT (UR) CULTURE INDICATED; CULTURE IF INDICATED CULTURE INDICATED; GLUCOSE,URINE NEG (NEG); HYALINE CAST, URINE 3 /lpf (RARE); KETONE, URINE NEG (NEG); MUCUS URINE FEW /lpf (OCC); NITRITE,URINE NEG (NEG); SQUAMOUS EPITHELIAL CELL URINE 73 /hpf (0-5); URINE COLOR DARK-YELLOW (YELLW/STRAW)
[2017-01-18 18:55] LABS: ALKALINE PHOSPHATASE 60 U/L (45-117); TOTAL BILIRUBIN ADULT 0.7 MG/DL (0.2-1.0)
[2017-01-18 18:58] VITALS: BP 143/79; PULSE 82; RESP 17; O2SAT 96
--- NOTE | 2017-01-18 19:01 | PD ---
HPI Chief Complaint: Flank/Kidney Pain Time Seen by Provider: 18:53 Travel History International Travel<30 days: No Contact w/Intl Traveler<30days: No Traveled to known affect area: No History of Present Illness HPI 71-year-old female presents to the emergency department for evaluation of right side pain that started approximately 2 months ago. She states this started out sharp in was more acute. However, she states it is now a soreness. Patient was seen on December 24, 2016 for the same issue. Laboratory work showed no acute abnormality. She was diagnosed with a urinary tract infection. CT abdomen/ pelvis showed a small hiatal hernia, mild cardiomegaly, scattered diverticulosis without inflammatory change, no calcified renal stones or hydronephrosis. Patient was discharged prescription for Keflex for UTI. She states it did not help her at all. She called her primary care physician was given a prescription for amoxicillin. She states she is still taking it. Patient denies any acute chest pain or shortness of breath. She did states she is nauseated, has no vomiting. She denies any current constipation or diarrhea. She states she did have an episode of diarrhea last week. She had a bowel movement yesterday which was slightly loose, but otherwise normal for her. No blood in her stool. Primary care physician is Dr. Tam. [facility] Past Medical History Hx Anticoagulant Therapy: Yes (XARELTO) Arthritis: Yes (BILAT KNEES, BACK, BILAT FEET) Asthma: No Atrial Fibrillation: Yes Autoimmune Disease: No Blood Disorders: No Anxiety: No (NORMAL STRESSES IN LIFE, OUT LIVED CHILD AND ) Depression: No (NORMAL STRESSED IN LIFE, OUT LIVED CHILD AND ) Heart Rhythm Problems: Yes Cancer: No Cardiovascular Problems: Yes (CHF) High Cholesterol: Yes Chemotherapy: No Chest Pain: No Congestive Heart Failure: Yes COPD: No Cerebrovascular Accident: No Diabetes: No Diminished Hearing: No Endocrine: No Gastrointestinal Disorders: Yes GERD: Yes Glaucoma: No Genitourinary: No Headaches: No Hepatitis: No Hiatal Hernia: Yes Hypertension: Yes Immune Disorder: No Implanted Vascular Access Dvce: Yes Kidney Stones: No Musculoskeletal: Yes Neurologic: No Psychiatric: No Reproductive: No Respiratory: Yes (SLEEP APNEA) Immunizations Current: Yes Migraines: No Myocardial Infarction: No Radiation Therapy: No Renal Failure: No Seizures: No Sickle Cell Disease: No Sleep Apnea: Yes Thyroid Disease: No Ulcer: No Past Surgical History Abdominal Surgery: Yes (appendectomy) AICD: No Appendectomy: Yes Arteriovenous Shunt: No Body Medical Devices: PIERCED EARS Cardiac Surgery: No Cholecystectomy: No Ear Surgery: No Endocrine Surgery: No Eye Surgery: Yes (PARITAL FACE LIFT YES) Genitourinary Surgery: No Gynecologic Surgery: Yes (breast reduction) Insulin Pump: No Joint Replacement: Yes (debby lt and rt replacement,rotator torn) Oral Surgery: No Pacemaker: No Thoracic Surgery: Yes (BILAT BREAST REDUCTION) Other Surgery: Yes (breast augmentation decreased) Social History Alcohol Use: No Tobacco Use: No Substance Use: No Allergies-Medications (Allergen,Severity, Reaction): Coded Allergies: Sulfa (Verified Allergy, Mild, skin peels, 01/18/17) Reported Meds & Prescriptions Reported Meds & Active Scripts Active Atrovent HFA 12.9 GM Inh (Ipratropium [place]) 17 Mcg/Act Aer 2 Puff INH TID Pulmicort Flexhaler (Budesonide Powder Inh) 180 Mcg/Act Inhp 180 Mcg INH Q12HR Xanax (Alprazolam) 0.5 Mg Tab 0.5 Mg PO Q8H PRN Reported Diltiazem ER 24 HR (Diltiazem HCl) 180 Mg Caper 180 Mg PO DAILY Furosemide 40 Mg Tab 40 Mg PO BID Clonidine (Clonidine HCl) 0.1 Mg Tab 0.1 Mg PO BID Albuterol Neb (Albuterol Sulfate) 2.5 Mg/3 Ml Neb 2.5 Mg NEB Q4HR NEB PRN Xarelto (Rivaroxaban) 20 Mg Tab 20 Mg PO DAILY Review of Systems Except as stated in HPI: all other systems reviewed are Neg Physical Exam Narrative GENERAL: Well-nourished, well-developed female patient, ambulatory. Afebrile. SKIN: Focused skin assessment warm/dry. HEAD: Normocephalic. Atraumatic. EYES: No scleral icterus. No injection or drainage. NECK: Supple, trachea midline. No JVD or lymphadenopathy. CARDIOVASCULAR: Regular rate and rhythm without murmurs, gallops, or rubs. RESPIRATORY: Breath sounds equal bilaterally. No accessory muscle use. Lungs sounds are clear to auscultation. GASTROINTESTINAL: Abdomen soft, non-tender, nondistended. No abdominal pain to palpation. MUSCULOSKELETAL: No cyanosis, or edema. BACK: Nontender without obvious deformity. No CVA tenderness. Data Data Last Documented VS Vital Signs Date Time Temp Pulse Resp B/P Pulse Ox O2 Delivery O2 Flow Rate FiO2 01/18/17 18:58 82 17 143/79 96 01/18/17 17:44 Room Air 01/18/17 16:57 98.2 Orders Complete Blood Count With Diff (01/18/17 17:20) Comprehensive Metabolic Panel (01/18/17 17:20) Lipase (01/18/17 17:20) Urinalysis - C+S If Indicated (01/18/17 17:20) Iv Access Insert/Monitor (01/18/17 17:20) Ecg Monitoring (01/18/17 17:20) Oximetry (01/18/17 17:20) Ondansetron Inj (Zofran Inj) (01/18/17 17:30) Sodium Chloride 0.9% Flush (Ns Flush) (01/18/17 17:30) Urine Culture (01/18/17 18:00) Blood Culture (01/18/17 19:47) Lactic Acid Sepsis Protocol (01/18/17 19:47) Ct Abd/Pel W Iv Contrast(Rout) (01/18/17 ) Piperacil-Tazo 4.5 Gm Premix (Zosyn 4.5 (01/18/17 20:00) Vancomycin Inj (Vancomycin Inj) (01/18/17 20:00) Sodium Chlor 0.9% 1000 Ml Inj (Ns 1000 M (01/18/17 20:00) Iohexol 350 Inj (Omnipaque 350 Inj) (01/18/17 20:36) Admit Order (Ed Use Only) (01/18/17 21:08) Labs Laboratory Tests Test 01/18/17 01/18/17 01/18/17 18:00 18:30 20:15 Urine Color DARK-YELLOW Urine Turbidity CLOUDY Urine pH 6.0 Urine Specific [place] 1.029 Urine Protein 100 mg/dL Urine Glucose (UA) NEG mg/dL Urine Ketones NEG mg/dL Urine Occult Blood NEG Urine Nitrite NEG Urine Bilirubin NEG Urine Urobilinogen 2.0 MG/DL Urine Leukocyte Esterase LARGE Urine RBC 5 /hpf Urine WBC 44 /hpf Urine Squamous Epithelial 73 /hpf Cells Urine Hyaline Casts 3 /lpf Urine Mucus FEW /lpf Microscopic Urinalysis Comment CULTURE INDICATED Sodium Level 140 MEQ/L Potassium Level 3.9 MEQ/L Chloride Level 106 MEQ/L Carbon Dioxide Level 25.4 MEQ/L Anion Gap 9 MEQ/L Blood Urea Nitrogen 11 MG/DL Creatinine 1.01 MG/DL Estimat Glomerular Filtration 65 ML/MIN Rate Random Glucose 94 MG/DL Calcium Level 9.9 MG/DL Total Bilirubin 0.7 MG/DL Aspartate Amino Transf 24 U/L (AST/SGOT) Alanine Aminotransferase 20 U/L (ALT/SGPT) Alkaline Phosphatase 60 U/L Total Protein 8.5 GM/DL Albumin 3.4 GM/DL Lipase 202 U/L White Blood Count 7.1 TH/MM3 Red Blood Count 4.73 MIL/MM3 Hemoglobin 13.3 GM/DL Hematocrit 41.2 % Mean Corpuscular Volume 87.1 FL Mean Corpuscular Hemoglobin 28.2 PG Mean Corpuscular Hemoglobin 32.4 % Concent Red Cell Distribution Width 14.8 % Platelet Count 153 TH/MM3 Mean Platelet Volume 8.9 FL Neutrophils (%) (Auto) % Lymphocytes (%) (Auto) % Monocytes (%) (Auto) % Eosinophils (%) (Auto) % Basophils (%) (Auto) % Neutrophils # (Auto) TH/MM3 Lymphocytes # (Auto) TH/MM3 Monocytes # (Auto) TH/MM3 Eosinophils # (Auto) TH/MM3 Basophils # (Auto) TH/MM3 CBC Comment AUTO DIFF Differential Total Cells 100 Counted Neutrophils % (Manual) 59 % Band Neutrophils % 8 % Lymphocytes % 23 % Monocytes % 5 % Eosinophils % 3 % Basophils % 2 % Neutrophils # (Manual) 4.8 TH/MM3 Differential Comment FINAL DIFF MANUAL Toxic Vacuolation PRESENT Platelet Estimate NORMAL Platelet Morphology Comment NORMAL Ovalocytes 1+ Lactic Acid Level 2.1 mmol/L [facility] Medical Decision Making Medical Screen Exam Complete: Yes Emergency Medical Condition: Yes Medical Record Reviewed: Yes Interpretation(s) Last Impressions Abdomen/Pelvis CT 01/18/17 0000 Signed Impressions: Service Date/Time: Wednesday, January 18, 2017 20:21 - CONCLUSION: Uncomplicated colonic diverticulosis. Cardiomegaly and coronary artery calcifications. Degenerative changes and multilevel spinal stenoses within the lumbar spine. Tirso Arana MD Differential Diagnosis UTI versus pyelonephritis versus muscle strain versus electrolyte abnormality versus nephrolithiasis Narrative Course 71-year-old female presents to the emergency department for evaluation of a right-sided soreness has been ongoing for 2 months. Patient had recent imaging and CT scan done on December 24 for the same symptoms. No acute abnormality was found. She was discharged with a prescription for Keflex and is now on amoxicillin. Patient appears well on exam. Abdominal exam is benign. CBC, CMP , lipase, UA are ordered and pending. Patient is given Zofran 4 mg IV. CBC shows normal WBC 7.1, however, the patient does have a band neutrophils, toxic vacuolation. CMP shows creatinine of 1.01. Lipase is 202. UA shows large leukocyte esterase, 5 RBC, 44 WBC. Patient is given NS 1 liter IV bolus, Zosyn 4.5 gm IV, Vancomycin1 gm IV, and CT abdomen/pelvis is ordered and pending. Blood cultures x 2 and lactic acid are ordered and pending. Lactic acid is 2.1. CT abdomen/pelvis shows Uncomplicated colonic diverticulosis. Cardiomegaly and coronary artery calcifications. Degenerative changes and multilevel spinal stenoses within the lumbar spine. [facility] is paged for admission. Dr. Castillo accepted admission. Diagnosis Primary Impression: Pyelonephritis Admitting Information Admitting Physician Requests: Admit Isabel Jones Jan 18, 2017 19:01
[2017-01-18 19:40] LABS: BANDS 8 % (0-6); BASOPHILS 2 % (0-2); EOSINOPHILS 3 % (0-4); NEUTROPHIL # MANUAL DIFF 4.8 TH/MM3 (1.8-7.7); POLYS (SEG NEUTROPHILS) 59 % (16-70); WBC DIFF SAMPLE 100
[2017-01-18 19:42] LABS: OVALOCYTES 1+ (NORMAL); PLATELET ESTIMATE SMEAR NORMAL (NORMAL); PLATELET MORPHOLOGY NORMAL (NORMAL); TOXIC VACUOLATION PRESENT (NONE SEEN)
[2017-01-18 19:43] LABS: SCAN/DIFF FINAL DIFF MANUAL
[2017-01-18] MEDS ORDERED: VANCOMYCIN INJ 1,000 MG in SODIUM CHLOR 0.9% 250 ML INJ 250 ML IV ONE (20:00)
[2017-01-18] MEDS ORDERED: SODIUM CHLOR 0.9% 1000 ML INJ 1,000 ML IV ONE (20:00)
[2017-01-18] MEDS ORDERED: PIPERACIL-TAZO 4.5 GM PREMIX 100 ML IV ONE (20:00)
[2017-01-18] MEDS ORDERED: IOHEXOL 350 MG/ML 10 ML VIAL (for RAD DIAG) IV ONE (20:36)
--- NOTE | 2017-01-18 20:53 | RADRPT ---
EXAM DATE/TIME: 01/18/2017 20:21 [place] COMPARISON: No previous studies available for comparison. INDICATIONS : Right sided abdominal pain. IV CONTRAST: 94 cc Omnipaque 350 (iohexol) IV ORAL CONTRAST: No oral contrast ingested. RADIATION DOSE: 29.90 CTDIvol (mGy) MEDICAL HISTORY : Cardiovascular disease. Congestive heart failure. Hypertension. SURGICAL HISTORY : Appendectomy. Bilateral breast reduction. ENCOUNTER: Initial ACUITY: 2 months PAIN SCALE: 6/10 LOCATION: Right abdomen TECHNIQUE: Volumetric scanning of the abdomen and pelvis was performed. Using automated exposure control and ad justment of the mA and/or kV according to patient size, radiation dose was kept as low as reasonably achievable to obtain optimal diagnostic quality images. DICOM format image data is available electro nically for review and comparison. FINDINGS: LOWER LUNGS: The visualized lower lungs are clear. Cardiac megaly and coronary artery calcifications are noted. LIVER: Homogeneous density without lesion. There is no dilation of the biliary tree. No calcified gallston es. SPLEEN: Normal size without lesion. PANCREAS: Within normal limits. KIDNEYS: Normal in size and shape. There is no mass, stone or hydronephrosis. ADRENAL GLANDS: Within normal limits. VASCULAR: There is no aortic aneurysm. BOWEL/MESENTERY: Uncomplicated colonic diverticulosis is noted. No acute diverticulitis is noted. ABDOMINAL WALL: Within normal limits. RETROPERITONEUM: There is no lymphadenopathy. BLADDER: No wall thickening or mass. REPRODUCTIVE: Within normal limits. INGUINAL: There is no lymphadenopathy or hernia. MUSCULOSKELETAL: Degenerative changes and multilevel spinal stenoses are noted within the lumbar spine. CONCLUSION: Uncomplicated colonic diverticulosis. Cardiomegaly and coronary artery calcifications . Degenerative changes and multilevel spinal stenoses within the lumbar spine. Tirso Arana MD on January 18, 2017 at 20:48 Board Certified Radiologist. This report was verified electronically.
[2017-01-18] MEDS ORDERED: SODIUM CHLOR 0.9% 1000 ML INJ 1,000 ML IV SCH (21:17)
[2017-01-18] MEDS ORDERED: LACTULOSE SYRUP 20 GM/30 ML CUP PO PRN (21:30)
[2017-01-18] MEDS ORDERED: RESP: ALBUTEROL 2.5 MG/3 ML NEB (PRN) NEB (21:30)
[2017-01-18] MEDS ORDERED: MAGNESIUM HYDROXIDE SUSP 30 ML CUP PO PRN (21:30)
[2017-01-18] MEDS ORDERED: ONDANSETRON HCL 4 MG/2 ML VIAL IVP PRN (21:30)
[2017-01-18] MEDS ORDERED: ACETAMINOPHEN 325 MG TAB PO PRN (21:30)
[2017-01-18] MEDS ORDERED: ACETAMINOPHEN/HYDROcodone 325 MG/5 MG TAB PO PRN (21:30)
[2017-01-18] MEDS ORDERED: BISACODYL 10 MG SUPP RECTAL PRN (21:30)
[2017-01-18] MEDS ORDERED: ALPRAZolam 0.5 MG TAB PO PRN (21:30)
[2017-01-18] MEDS ORDERED: SENNOSIDES 8.6 MG TAB PO PRN (21:30)
[2017-01-18] MEDS ORDERED: ACETAMINOPHEN/HYDROcodone 325 MG/10 MG TAB PO PRN (21:30)
[2017-01-18 22:17] LABS: LACTIC ACID GHOST NOT REPORTABLE
[2017-01-18 22:30] VITALS: BP 137/86; PULSE 71; RESP 20; TEMP 97.6; O2SAT 96
[2017-01-19 00:34] VITALS: PULSE 56
--- NOTE | 2017-01-19 00:50 | HHI.HP ---
HPI Service [facility] Primary Care Physician Rodney Tam MD Admission Diagnosis pyelonephritis, bandemia Diagnoses: (1) Sepsis Diagnosis: Principal (2) Bandemia Diagnosis: Principal (3) UTI (urinary tract infection) Diagnosis: Principal (4) A-fib Diagnosis: Principal (5) HTN (hypertension) Diagnosis: Principal (6) COPD (chronic obstructive pulmonary disease) Diagnosis: Principal Travel History International Travel<30 Days: No Contact w/Intl Traveler <30 Da: No Traveled to Known Affected Are: No History of Present Illness This is a 71-year-old female with a PMH of A. fib on Xarelto, HTN, CHF (Echo 08/29 w/ EF 50-55%), COPD and Arthritis who presented to the ER w/ complaints of right flank pain x2 months. Presented to ER 12/24/16 for similar complaints, CT Abd/Pelvis 12/24/16 w/ no significant abnormalities, found to have UTI and d/c'd home w/ Keflex 500mg bid x1 wk. Had persistent complaints and was started on Amoxicillin by PCP which she is currently taking but reports no significant improvement. Returns now w/ ongoing pain. Denies fever, chills, nausea, vomiting or diarrhea. On arrival, BP 179/96, HR 108, O2 sat 98% on RA, Afebrile. CBC unremarkable except for bandemia of 8%. Creatinine 1.01, previously 1.02 on 12/24/16. Lactate Acid 2.1. UA with UTI. CT Abd/Pelvis w/ uncomplicated diverticulosis, no acute findings. S/p Blood/Urine Culture and Vanc/Zosyn in ER. Review of Systems Except as stated in HPI: all other systems reviewed are Neg ROS: 14 point review of systems otherwise negative. Past Family Social History Past Medical History PMH: A. fib on Xarelto, HTN, CHF (Echo 08/29/16 w/ EF 50-55%), COPD and Arthritis Past Surgical History PAST SURGICAL HISTORY: Appendectomy Breast Reduction, Partial Face Lift, Rotator Cuff Allergies: Coded Allergies: Sulfa (Verified Allergy, Mild, skin peels, 01/18/17) Family History PAST FAMILY HISTORY: Reviewed. No h/o DM or CAD Social History PAST SOCIAL HISTORY: Negative for alcohol, tobacco or drugs. Physical Exam Vital Signs Vital Signs Date Time Temp Pulse Resp B/P Pulse Ox O2 Delivery O2 Flow Rate FiO2 01/18/17 22:30 97.6 71 20 137/86 96 01/18/17 18:58 82 17 143/79 96 01/18/17 18:57 89 17 01/18/17 17:44 90 18 137/84 96 Room Air 01/18/17 16:57 98.2 108 18 179/96 98 Physical Exam PE: GENERAL: Pleasant elderly black female in no acute distress. HEENT: PERRLA, EOMI. No scleral icterus or conjunctival pallor. No lid lag or facial droop. CARDIOVASCULAR: Regular rate and rhythm. No obvious murmurs to auscultation. No chest tenderness to palpation. RESPIRATORY: No obvious rhonchi or wheezing. Clear to auscultation. Breath sounds equal bilaterally. GASTROINTESTINAL: Abdomen obese but soft, non-tender, nondistended. BS normal. MUSCULOSKELETAL: Extremities without clubbing, cyanosis, or edema. No obvious deformities. NEUROLOGICAL: Awake, alert and oriented x4. No focal neurologic deficits. Moving both upper and lower extremities spontaneously. Laboratory Laboratory Tests Test 01/18/17 01/18/17 01/18/17 18:00 18:30 20:15 Urine Color DARK-YELLOW Urine Turbidity CLOUDY Urine pH 6.0 Urine Specific [place] 1.029 Urine Protein 100 Urine Glucose (UA) NEG Urine Ketones NEG Urine Occult Blood NEG Urine Nitrite NEG Urine Bilirubin NEG Urine Urobilinogen 2.0 Urine Leukocyte Esterase LARGE Urine RBC 5 Urine WBC 44 Urine Squamous Epithelial 73 Cells Urine Hyaline Casts 3 Urine Mucus FEW Microscopic Urinalysis Comment CULTURE INDICATED Sodium Level 140 Potassium Level 3.9 Chloride Level 106 Carbon Dioxide Level 25.4 Anion Gap 9 Blood Urea Nitrogen 11 Creatinine 1.01 Estimat Glomerular Filtration 65 Rate Random Glucose 94 Calcium Level 9.9 Total Bilirubin 0.7 Aspartate Amino Transf 24 (AST/SGOT) Alanine Aminotransferase 20 (ALT/SGPT) Alkaline Phosphatase 60 Total Protein 8.5 Albumin 3.4 Lipase 202 White Blood Count 7.1 Red Blood Count 4.73 Hemoglobin 13.3 Hematocrit 41.2 Mean Corpuscular Volume 87.1 Mean Corpuscular Hemoglobin 28.2 Mean Corpuscular Hemoglobin 32.4 Concent Red Cell Distribution Width 14.8 Platelet Count 153 Mean Platelet Volume 8.9 Neutrophils (%) (Auto) Lymphocytes (%) (Auto) Monocytes (%) (Auto) Eosinophils (%) (Auto) Basophils (%) (Auto) Neutrophils # (Auto) Lymphocytes # (Auto) Monocytes # (Auto) Eosinophils # (Auto) Basophils # (Auto) CBC Comment AUTO DIFF Differential Total Cells 100 Counted Neutrophils % (Manual) 59 Band Neutrophils % 8 Lymphocytes % 23 Monocytes % 5 Eosinophils % 3 Basophils % 2 Neutrophils # (Manual) 4.8 Differential Comment FINAL DIFF MANUAL Toxic Vacuolation PRESENT Platelet Estimate NORMAL Platelet Morphology Comment NORMAL Ovalocytes 1+ Lactic Acid Level 2.1 Date/Time Procedure Status Source Growth 01/18/17 20:15 Aerobic Blood Culture Received Blood Peripheral Pending 01/18/17 20:15 Anaerobic Blood Culture Received Blood Peripheral Pending 01/18/17 18:00 Urine Culture Worksheet Urine Clean Catch Pending Result Diagram: 01/18/17 1830 01/18/17 1800 Assessment and Plan Problem List: (1) Sepsis ICD Code: A41.9 Status: Acute (2) Bandemia ICD Code: D72.825 Status: Acute (3) UTI (urinary tract infection) ICD Code: N39.0 Status: Acute (4) A-fib ICD Code: I48.91 Status: Acute (5) HTN (hypertension) ICD Code: I10 Status: Chronic (6) COPD (chronic obstructive pulmonary disease) ICD Code: J44.9 Status: Acute Assessment and Plan A/P: 1. Sepsis: HR 108, Bandemia 8%, Lactic Acid 2.1, U/a w/ UTI. Source-UTI. S/ p Blood/Urine Cultures, Vanc/Zosyn in ER. Will follow up cultures, continue w/ IV Abx, IVF for hydration, repeat Lactate. 2. UTI: w/ Failed Outpt Tx, previously on Keflex 500mg bid, states recently started on Amoxicillin by PCP. U/a w/ persistent UTI. Follow up cultures, continue w/ IV Abx as above. 3. A-fib: Controlled. Resume home Xarelto and Diltiazem. 4. COPD: Chronic Respiratory Failure. Stable. Resume home MDI/Neb. 5. HTN: BP 170's on arrival, currently 137/89, HR 71. Will resume home medications, monitor BP. 6. DVT Prophylaxis: On Xarelto 7. Social work for d/c planning as needed. 8. Case discussed w/ ER physician at length Physician Certification 2 Midnight Certification Type: Admission for Inpatient Services Order for Inpatient Services The services are ordered in accordance with Medicare regulations or non- Medicare payer requirements, as applicable. In the case of services not specified as inpatient-only, they are appropriately provided as inpatient services in accordance with the 2-midnight benchmark. Estimated LOS (days): 2 days is the estimated time the patient will need to remain in the hospital, assuming treatment plan goals are met and no additional complications. Post-Hospital Plan: Not yet determined Pamela Castillo MD Jan 19, 2017 00:50
[2017-01-19] MEDS: PIPERACIL-TAZO 3.375 GM PREMIX 50 ML IV SCH ×4 (02:01→20:43)
[2017-01-19 04:00] VITALS: BP 121/65; PULSE 63; RESP 20; TEMP 97.6; O2SAT 97
[2017-01-19 08:00] VITALS: BP 122/68; PULSE 63; RESP 20; TEMP 97.3; O2SAT 95
[2017-01-19] MEDS ORDERED: PULMICORT FLEXHALER 180 MCG INH SCH (09:00)
[2017-01-19 09:12] LABS: AUTOMATED NEUTROPHIL # 3.1 TH/MM3 (1.8-7.7); BASOPHIL % 0.4 % (0.0-2.0); EOSINOPHIL # 0.2 TH/MM3 (0-0.4); EOSINOPHIL % 4.1 % (0.0-4.0); HEMATOCRIT 35.4 % (35.0-46.0); HEMO FLAGS DIFF FINAL; LYMPHOCYTE # 1.9 TH/MM3 (1.0-4.8); MEAN CELL VOLUME 89.1 FL (80.0-100.0); MEAN CORPUSCULAR HGB CONC 32.6 % (32.0-36.0); MONO % 10.8 % (0.0-8.0); NEUT % 52.7 % (16.0-70.0); PLATELET COUNT 147 TH/MM3 (150-450); RED BLOOD COUNT 3.97 MIL/MM3 (4.00-5.30); WHITE BLOOD COUNT 5.9 TH/MM3 (4.0-11.0)
[2017-01-19 09:28] LABS: ALKALINE PHOSPHATASE 50 U/L (45-117); ALT (GPT) 16 U/L (10-53); ANION GAP 8 MEQ/L (5-15); AST (GOT) 21 U/L (15-37); BICARBONATE 24.9 MEQ/L (21.0-32.0); BLOOD UREA NITROGEN 13 MG/DL (7-18); CHLORIDE 109 MEQ/L (98-107); GLOMERULAR FILTRATION RATE 74 ML/MIN (>89); POTASSIUM 4.3 MEQ/L (3.5-5.1); SODIUM (NA) 142 MEQ/L (136-145); TOTAL BILIRUBIN ADULT 0.6 MG/DL (0.2-1.0)
[2017-01-19] MEDS: DILTIAZEM-CD 180 MG CAP ER PO SCH (10:01)
[2017-01-19] MEDS: DOCUSATE SODIUM 50 MG/SENNA 8.6 MG TAB PO SCH ×2 (10:02→20:43)
[2017-01-19] MEDS: RIVAROXABAN 20 MG TAB PO SCH (10:02)
[2017-01-19] MEDS: SODIUM CHLORIDE 0.9% FLUSH 10 ML FLUSH IV FLUSH SCH ×2 (10:05→20:44)
--- NOTE | 2017-01-19 10:36 | HHI.PR ---
Subjective Remarks Follow-up for UTI and right flank pain Patient continues to have right flank pain. She stated it is constant and more soreness. Denying nausea or vomiting. She remains afebrile. Objective Vitals Vital Signs Date Time Temp Pulse Resp B/P Pulse Ox O2 Delivery O2 Flow Rate FiO2 01/19/17 08:00 97.3 63 20 122/68 95 01/19/17 04:00 Room Air 01/19/17 04:00 97.6 63 20 121/65 97 01/19/17 00:34 56 01/19/17 00:00 Room Air 01/18/17 23:00 Room Air 01/18/17 22:30 97.6 71 20 137/86 96 01/18/17 18:58 82 17 143/79 96 01/18/17 18:57 89 17 01/18/17 17:44 90 18 137/84 96 Room Air 01/18/17 16:57 98.2 108 18 179/96 98 I/O 01/18/17 01/18/17 01/18/17 01/19/17 01/19/17 01/19/17 07:00 15:00 23:00 07:00 15:00 23:00 Intake Total 963 ml Balance 963 ml Intake IV Total 963 ml Result Diagram: 01/19/1724 01/19/17 0824 Imaging Last Impressions Abdomen/Pelvis CT 01/18/17 0000 Signed Impressions: Service Date/Time: Wednesday, January 18, 2017 20:21 - CONCLUSION: Uncomplicated colonic diverticulosis. Cardiomegaly and coronary artery calcifications. Degenerative changes and multilevel spinal stenoses within the lumbar spine. Tirso Arana MD Objective Remarks GENERAL: In no acute distress and clinically looks well. SKIN: Warm and dry. HEAD: Normocephalic. EYES: No scleral icterus. No injection or drainage. NECK: Supple, trachea midline. No JVD or lymphadenopathy. CARDIOVASCULAR: Regular rate and rhythm without murmurs, gallops, or rubs. RESPIRATORY: Breath sounds equal bilaterally. No accessory muscle use. GASTROINTESTINAL: Abdomen soft, non-tender, nondistended. MUSCULOSKELETAL: No cyanosis, or edema. BACK: Nontender without obvious deformity. + right muscular pain Medications and IVs Current Medications Ondansetron HCl (Zofran Inj) 4 mg ONCE ONCE IVP Last administered on 18:43; Start 01/18/17 at 17:30; Stop 01/18/17 at 17:31; Status DC Sodium Chloride 2 ml 2 ml UNSCH PRN IV FLUSH FLUSH AFTER USING IV ACCESS; Start 01/18/17 at 17:30; Stop 01/18/17 at 21:27; Status DC Piperacillin Sod/ Tazobactam Sod 100 ml @ 200 mls/hr ONCE ONCE IV Last administered on 01/18/17 20:00; Start 01/18/17 at 20:00; Stop 01/18/17 at 20:29 ; Status DC Vancomycin HCl 1000 mg/Sodium Chloride 250 ml @ 250 mls/hr ONCE ONCE IV Last administered on 01/18/17 20:00; Start 01/18/17 at 20:00; Stop 01/18/17 at 20:59 ; Status DC Sodium Chloride (NS 1000 ml Inj) 1,000 ml @ 999 mls/hr BOLUS ONCE IV ; Start 01/18/17 at 20:00; Stop 01/18/17 at 21:00; Status DC Iohexol 94 ml 94 ml STK-MED ONCE IV Last administered on 01/18/17 20:36; Start 01/18/17 at 20:36; Stop 01/18/17 at 20:37; Status DC Piperacillin Sod/ Tazobactam Sod 50 ml @ 100 mls/hr Q6H IV Last administered on 01/19/17 10:05; Start 01/19/17 at 02:00 Sodium Chloride (NS 1000 ml Inj) 1,000 ml @ 100 mls/hr Q10H IV Last administered on 01/18/17 21:17; Start 01/18/17 at 21:17 Sodium Chloride (NS Flush) 2 ml UNSCH PRN IV FLUSH FLUSH AFTER USING IV ACCESS ; Start 01/18/17 at 21:30 Sodium Chloride (NS Flush) 2 ml BID IV FLUSH ; Start 01/19/17 at 09:00 Ondansetron HCl (Zofran Inj) 4 mg Q6H PRN IVP NAUSEA OR VOMITING; Start at 21:30 Acetaminophen (Tylenol) 650 mg Q6H PRN PO FEVER/PAIN SCALE 1 TO 2; Start at 21:30 Acetaminophen/ Hydrocodone Bitart ([place] 5-325 Mg) 1 tab Q4H PRN PO PAIN SCALE 3 TO 5; Start 01/18/17 at 21:30 Acetaminophen/ Hydrocodone Bitart ([place] 10-325 Mg) 1 tab Q4H PRN PO PAIN SCALE 6 TO 10; Start 01/18/17 at 21:30 Senna/Docusate Sodium (Bibi-Colace) 1 tab BID PO Last administered on 10:02; Start 01/19/17 at 09:00 Magnesium Hydroxide (Milk Of Magnesia Liq) 30 ml Q12H PRN PO MILD - MODERATE CONSTIPATION; Start 01/18/17 at 21:30 Sennosides (Senokot) 17.2 mg Q12H PRN PO MODERATE - SEVERE CONSTIPATION; Start 01/18/17 at 21:30 Bisacodyl (Dulcolax Supp) 10 mg DAILY PRN RECTAL SEVERE CONSITIPATION; Start at 21:30 Lactulose (Lactulose Liq) 30 ml DAILY PRN PO SEVERE CONSITIPATION; Start at 21:30 Albuterol Sulfate (Albuterol Neb) 2.5 mg Q4HR NEB PRN NEB SHORTNESS OF BREATH; Start 01/18/17 at 21:30 Alprazolam (Xanax) 0.5 mg Q8H PRN PO ANXIETY; Start 01/18/17 at 21:30 Clonidine (Catapres) 0.1 mg BID PO ; Start 01/19/17 at 09:00 Rivaroxaban (Xarelto) 20 mg DAILY PO Last administered on 01/19/17 10:02; Start 01/19/17 at 09:00 Patient Own Medication PT OWN MED: PULMIC... Q12HR INH AST; Start 01/19/17 at 09 :00; Status Hold Diltiazem HCl (Cardizem Cd) 180 mg DAILY PO Last administered on 01/19/17 10: 01; Start 01/19/17 at 09:00 Prednisone (Deltasone) 50 mg ONCE ONCE PO ; Start 01/19/17 at 10:30; Stop 01/19 at 10:31; Status UNV A/P Problem List: (1) Sepsis ICD Code: A41.9 Status: Acute (2) Bandemia ICD Code: D72.825 Status: Acute (3) UTI (urinary tract infection) ICD Code: N39.0 Status: Acute (4) A-fib ICD Code: I48.91 Status: Acute (5) HTN (hypertension) ICD Code: I10 Status: Chronic (6) COPD (chronic obstructive pulmonary disease) ICD Code: J44.9 Status: Acute Assessment and Plan 71-year-old who presented with right CVA tenderness UTI -Failed outpatient treatment therapy. Patient does not meet sepsis criteria. She does not have any multiorgan damage. -Will continue with Zosyn pending cultures. Mildly elevated lactic acid -Most likely secondary to musculoskeletal damage. -We'll try to avoid ibuprofen since patient is on Xarelto. Will give 1 dose of prednisone to see if this helps with her right lower back pain A-fib: Controlled. -Continue with home Xarelto and Diltiazem. COPD: Chronic Respiratory Failure. -Stable. -continue home MDI/Neb. HTN: -Continue with home medication. DVT Prophylaxis: On Xarelto Discharge Planning Pending urine cultures before discharge. Briana Zhang MD Jan 19, 2017 10:36
[2017-01-19] MEDS ORDERED: predniSONE 50 MG TAB PO ONE (11:00)
[2017-01-19 12:00] VITALS: BP 133/63; PULSE 65; RESP 20; TEMP 97.5; O2SAT 98
[2017-01-19] MEDS: cloNIDine HCL 0.1 MG TAB PO SCH ×2 (12:42→20:43)
[2017-01-19 16:00] VITALS: BP 133/63; PULSE 65; RESP 20; TEMP 97.5; O2SAT 98
[2017-01-19 20:54] VITALS: BP 135/81; PULSE 86; RESP 20; TEMP 98.6; O2SAT 100
[2017-01-20] VITALS: BP 146/71; PULSE 75; RESP 20; TEMP 97.6; O2SAT 93
[2017-01-20] MEDS: PIPERACIL-TAZO 3.375 GM PREMIX 50 ML IV SCH ×2 (01:17→09:41)
[2017-01-20 04:00] VITALS: BP 134/84; PULSE 70; RESP 18; TEMP 97.7; O2SAT 99
[2017-01-20 08:00] VITALS: BP 157/72; PULSE 61; RESP 18; TEMP 97.2; O2SAT 99
[2017-01-20 08:25] LABS: HEMATOCRIT 38.2 % (35.0-46.0); MEAN CELL VOLUME 88.2 FL (80.0-100.0); MEAN CORPUSCULAR HEMOGLOBIN 28.1 PG (27.0-34.0); MEAN CORPUSCULAR HGB CONC 31.9 % (32.0-36.0); PLATELET COUNT 144 TH/MM3 (150-450); RED BLOOD COUNT 4.33 MIL/MM3 (4.00-5.30); RED CELL DISTRIBUTION WIDTH 14.7 % (11.6-17.2); REVIEW FLAG FINAL; WHITE BLOOD COUNT 8.2 TH/MM3 (4.0-11.0)
[2017-01-20 08:41] LABS: BICARBONATE 27.7 MEQ/L (21.0-32.0); POTASSIUM 4.3 MEQ/L (3.5-5.1)
[2017-01-20] MEDS: cloNIDine HCL 0.1 MG TAB PO SCH (09:41)
[2017-01-20] MEDS: DOCUSATE SODIUM 50 MG/SENNA 8.6 MG TAB PO SCH (09:41)
[2017-01-20] MEDS: SODIUM CHLORIDE 0.9% FLUSH 10 ML FLUSH IV FLUSH SCH (09:41)
[2017-01-20] MEDS: DILTIAZEM-CD 180 MG CAP ER PO SCH (09:41)
[2017-01-20] MEDS: RIVAROXABAN 20 MG TAB PO SCH (09:41)
[2017-01-20] MEDS ORDERED: PRED50 PO (11:01)
--- NOTE | 2017-01-20 11:03 | HHI.DS ---
Discharge Summary Admission Date Jan 18, 2017 at 21:09 Admitting Diagnosis pyelonephritis, bandemia (1) Sepsis ICD Code: A41.9 (2) Bandemia ICD Code: D72.825 (3) UTI (urinary tract infection) ICD Code: N39.0 (4) A-fib ICD Code: I48.91 (5) HTN (hypertension) ICD Code: I10 (6) COPD (chronic obstructive pulmonary disease) ICD Code: J44.9 Brief History - From Admission This is a 71-year-old female with a PMH of A. fib on Xarelto, HTN, CHF (Echo 08/29 w/ EF 50-55%), COPD and Arthritis who presented to the ER w/ complaints of right flank pain x2 months. Presented to ER 12/24/16 for similar complaints, CT Abd/Pelvis 12/24/16 w/ no significant abnormalities, found to have UTI and d/c'd home w/ Keflex 500mg bid x1 wk. Had persistent complaints and was started on Amoxicillin by PCP which she is currently taking but reports no significant improvement. Returns now w/ ongoing pain. Denies fever, chills, nausea, vomiting or diarrhea. On arrival, BP 179/96, HR 108, O2 sat 98% on RA, Afebrile. CBC unremarkable except for bandemia of 8%. Creatinine 1.01, previously 1.02 on 12/24/16. Lactate Acid 2.1. UA with UTI. CT Abd/Pelvis w/ uncomplicated diverticulosis, no acute findings. S/p Blood/Urine Culture and Vanc/Zosyn in ER. CBC/BMP: 01/20/17 0722 01/20/17 0722 Significant Findings Laboratory Tests Test 01/18/17 01/18/17 01/18/17 01/19/17 18:00 18:30 20:15 00:08 Urine Color DARK-YELLOW (YELLW/STRAW) Urine Turbidity CLOUDY (CLEAR) Urine Protein 100 mg/dL (NEG-TRACE) Urine Leukocyte Esterase LARGE (NEG) Urine RBC 5 /hpf (0-3) Urine WBC 44 /hpf (0-5) Urine Mucus FEW /lpf (OCC) Creatinine 1.01 MG/DL (0.50-1.00) Estimat Glomerular Filtration 65 ML/MIN (>89) Rate Total Protein 8.5 GM/DL (6.4-8.2) Band Neutrophils % 8 % (0-6) Toxic Vacuolation PRESENT (NONE SEEN) Ovalocytes 1+ (NORMAL) Lactic Acid Level 2.1 mmol/L 2.4 mmol/L (0.4-2.0) (0.4-2.0) Test 01/19/17 01/20/17 08:24 07:22 Red Blood Count 3.97 MIL/MM3 (4.00-5.30) Hemoglobin 11.5 GM/DL (11.6-15.3) Platelet Count 147 TH/MM3 144 TH/MM3 (150-450) (150-450) Monocytes (%) (Auto) 10.8 % (0.0-8.0) Eosinophils (%) (Auto) 4.1 % (0.0-4.0) Chloride Level 109 MEQ/L 109 MEQ/L (98-107) (98-107) Estimat Glomerular Filtration 74 ML/MIN (>89) 76 ML/MIN (>89) Rate Albumin 2.8 GM/DL (3.4-5.0) Mean Corpuscular Hemoglobin 31.9 % Concent (32.0-36.0) Random Glucose 113 MG/DL (74-106) PE at Discharge GENERAL: In no acute distress and clinically looks well. SKIN: Warm and dry. HEAD: Normocephalic. EYES: No scleral icterus. No injection or drainage. NECK: Supple, trachea midline. No JVD or lymphadenopathy. CARDIOVASCULAR: Regular rate and rhythm without murmurs, gallops, or rubs. RESPIRATORY: Breath sounds equal bilaterally. No accessory muscle use. GASTROINTESTINAL: Abdomen soft, non-tender, nondistended. MUSCULOSKELETAL: No cyanosis, or edema. BACK: Nontender without obvious deformity. + right muscular pain Discharge Disposition: Discharge Home Discharge Instructions DIET: Follow Instructions for: Heart Healthy Diet Activities you can perform: Regular-No Restrictions Briana Zhang MD Jan 20, 2017 11:03
--- NOTE | 2017-01-20 11:03 | HHI.DCPOC ---
Discharge Care Plan Diagnosis: (1) CVA tenderness (2) Musculoskeletal back pain Goals to Promote Your Health * To prevent worsening of your condition and complications * To maintain your health at the optimal level Directions to Meet Your Goals Take your medications as prescribed Follow your dietary instruction Follow activity as directed Keep your appointments as scheduled Take your immunizations and boosters as scheduled If your symptoms worsen call your PCP, if no PCP go to Urgent Care Center or Emergency Room Smoking is Dangerous to Your Health. Avoid second hand smoke Call the 24-hour hour crisis hotline for domestic abuse at Briana Zhang MD Jan 20, 2017 11:03
[2017-01-20 12:00] VITALS: BP 132/61; PULSE 70; RESP 20; TEMP 97.3; O2SAT 95
== END 2017-01-20 14:55 | disposition home or self-care (01) | DRG 690 ==
LOC: NEPE 16:55 → NEDA 21:09 → N04B 22:18
PROVIDERS: ADMIT Family Medicine; ATTEND Family Medicine
DX: N12 Tubulo-interstitial nephritis, not specified as acute or chronic (principal); J96.10 Chronic respiratory failure, unspecified whether with hypoxia or hypercapnia; I50.9 Heart failure, unspecified; I48.91 Unspecified atrial fibrillation; I11.0 Hypertensive heart disease with heart failure; M19.90 Unspecified osteoarthritis, unspecified site; K21.9 Gastro-esophageal reflux disease without esophagitis; G47.30 Sleep apnea, unspecified; Z96.653 Presence of artificial knee joint, bilateral; J44.9 Chronic obstructive pulmonary disease, unspecified; E78.00 Pure hypercholesterolemia, unspecified; K44.9 Diaphragmatic hernia without obstruction or gangrene; K57.30 Diverticulosis of large intestine without perforation or abscess without bleeding; Z79.01 Long term (current) use of anticoagulants
CPT/HCPCS: 74177; 80048; 80053; 81001; 83605; 83690; 85007; 85025; 85027; 87040; 87086; 96374; 96375; J2405; J2543; J3370; J7030; J7050; J7512; Q9967